=== PATIENT | male | born 1930 | race Caucasian/White ===

== ENCOUNTER 2016-11-27 10:08 | Inpatient (IN) | payer OTHER, BC ==
--- NOTE | 2016-11-27 10:15 | PDOC ---
History of Present Illness - General Chief Complaint: Rectal Bleed Stated Complaint: BLOOD IN STOOL Time Seen by Provider: 11/27/16 10:14 - History of Present Illness Initial Comments: 11/27/16 10:35 Complaint: Black stool History of present illness: For about a week, the patient has been experiencing black bowel movements. No constipation, diarrhea, or straining. No abdominal pain, nausea, or vomiting. Appetite is normal Review of systems: Denies chest pain, shortness of breath, abdominal pain, nausea, vomiting, diarrhea, visual or focal neurologic symptoms, unsteadiness of gait, lightheadedness, dizziness. Remainder systems reviewed and found to be negative Past medical history: CAD, pacemaker, but no prior [place]. Colon cancer with resection 7 years ago, disease-free since. High blood pressure. Elevated cholesterol. Takes one baby aspirin per day. However, no history of stomach, duodenal ulcer or GI bleeding Social history: No tobacco alcohol or nonprescription drug abuse. a stable home and family, fully active without disability Family history: Reviewed and noncontributory including early coronary artery disease, cancer, peptic ulcer disease, metabolic disease including diabetes. Physical exam: Alert and oriented 3, well-developed well-nourished, no acute distress, cheerful and cooperative Afebrile, vital signs stable No pallor or icterus. PERRLA, fundi benign, ENT clear Neck supple without bruit mass or nodes Lungs clear to P&A with full breath sounds throughout bilaterally CV S1 and S2 normal without murmur rub or gallop pulses full and symmetric no JVD movement 60 and regular Abdomen nondistended, normal bowel sounds, soft without masses tenderness organomegaly Rectal exam: Prostate 3+, firm, nontender, without nodules. Stool is black, soft , and blood-tinged. No mass or tenderness Neurological intact Extremities no CCE Skin clear, no rash, adequate turgor and wet mucous membranes Impression: Possible upper GI bleed secondary to aspirin therapy. Possible lower GI bleed, diverticular, or less likely recurrent colon cancer. There is no abdominal pain or tenderness, however. Plan: CBC, chemistries, and further medical evaluation depending on results. Patient appears to be stable at present, and doubt significant blood loss. 11/27/16 11:19 Past History - Past Medical History Allergies/Adverse Reactions: Allergies Allergy/AdvReac Type Severity Reaction Status Date / Time Penicillins Allergy Verified 11/27/16 10:16 Home Medications: Ambulatory Orders Metoprolol Succinate [Toprol XL -] 50 mg PO BID 10/09/13 Multivitamin [Multivitamins] 1 each PO DAILY 10/09/13 Ramipril 2.5 mg PO DAILY 10/09/13 Simvastatin [Zocor] 80 mg PO HS 10/09/13 Pantoprazole Sodium [Protonix -] 40 mg PO DAILY #30 tablet.ec 10/11/13 Aspirin [Aspirin EC] 81 mg PO DAILY 11/27/16 Anemia: Yes Cancer: Yes (COLON CA) Cardiac Disorders: Yes (CAD W/ PM) GI Disorders: Yes (DIVERTULOSIS) - Surgical History Abdominal Surgery: Yes (COLON RESECTION) - Psycho/Social/Smoking Cessation Hx Anxiety: No Suicidal Ideation: No Smoking History: Former smoker Have you smoked in the past 12 months: No Number of Cigarettes Smoked Daily: 0 ED Treatment Course - LABORATORY CBC & Chemistry Diagram: 11/27/16 10:45 11/27/16 10:45 Medical Decision Making - Critical Care Time Total Critical Care Time (minutes): 30 Critical Care Statement: The care of this patient involved high complexity decision making to prevent further life threatening deterioration of the patient 's condition and/or to evalute & treat vital organ system(s) failure or risk of failure. - Medical Decision Making 11/27/16 11:35 Patient is significantly orthostatic. H&H are stable, but BUNs 36, suggestive of continued bleeding Dr. Saez contacted for consultation. He will see patient in the ER Patient will be admitted because of probable ongoing GI bleed and significant coronary artery disease. His H&H are stable but is [place] is 36 and his blood pressure drops to 60/40, accompanied by lightheadedness, with standing. 11/27/16 12:35 Doctor Carter contacted by phone. Case discussed. He will accept the patient for ICU admission. 11/27/16 13:[address] Grififths, hospitalist. Case was discussed. He accepts patient for admission Patient remained stable at present. He is comfortable and his vital signs are stable while lying. There is been no continued diarrhea. He has no abdominal pain. . *DC/Admit/Observation/Transfer Diagnosis at time of Disposition: GI (gastrointestinal hemorrhage) Qualifiers: GI bleed type/associated pathology: melena Qualified Code(s): K92.1 - Melena - Discharge Dispostion Condition at time of disposition: Guarded Admit: Yes
[2016-11-27 10:57] LABS: STOOL FOR OCCULT BLOOD POSITIVE (NEGATIVE)
[2016-11-27 11:06] LABS: BASOPHIL 0.6 % (0-2.0); EOSINOPHIL 0.8 % (0-4.5); MCH 31.6 pg (25.7-33.7); MCHC 33.3 g/dl (32.0-35.9); MEAN PLT VOLUME 8.2 fl (7.5-11.1); NEUTROPHILS 78.2 % (42.8-82.8); PLATELET COUNT 210 K/MM3 (134-434); RDW 12.5 % (11.9-15.9)
[2016-11-27 11:10] LABS: URINE APPEARANCE Clear; URINE BILIRUBIN Negative (NEGATIVE); URINE GLUCOSE (UA) Negative (NEGATIVE); URINE KETONE Negative (NEGATIVE); URINE LEUK ESTERASE Trace (NEGATIVE); URINE NITRITE Negative (NEGATIVE); URINE UROBILINOGEN 1.0 E.U/dl (0.2-1.0)
[2016-11-27 11:11] LABS: URINE BLOOD 2+ (NEGATIVE); URINE COLOR YELLOW; URINE PROTEIN 1+ (NEGATIVE)
[2016-11-27 11:15] LABS: ALBUMIN 4.6 g/dl (3.5-5.0); BILIRUBIN,TOTAL 1.1 mg/dl (0.2-1.0); CALCIUM 9.3 mg/dl (8.4-10.2); CREATININE 1.5 mg/dl (0.6-1.3); TOT PROT 7.4 g/dl (6.4-8.3)
[2016-11-27] MEDS ORDERED: PANTOPRAZOLE SODIUM 40 MG in SODIUM CHLORIDE 100 ML IVPB ONE (11:26)
[2016-11-27] MEDS ORDERED: PANTOPRAZOLE SODIUM 40 MG VIAL ONE (11:30)
[2016-11-27 13:12] LABS: URINE RBC 30-50 /hpf (0-3)
[2016-11-27 13:13] LABS: URINE HYALINE CAST 0-2 /lpf
[2016-11-27 15:28] VITALS: BMI 23.3
--- NOTE | 2016-11-27 16:07 | CONSULT ---
Consultation: REQUESTING PROVIDER: CONSULT REQUEST: We have been asked to medically evaluate this patient for possible GIB HISTORY OF PRESENT ILLNESS: 85 yo M with PMHx of GIB, HTN, HLD, CAD, and colon ca. presents with one week history of black tarry stools. He states that for the past week he has had 1-2 black tarry stools/day which have gotten progressively darker of the past few days. He is on ASA for his CAD. He also mentions that he has noticed some increased fatigue and lightheadedness when he stands. BP was 66/47 this morning in ED at [place]. Transferred to ICU for hypotension and possible GI bleed. Had an episode of GI bleed 3 yrs prior admitted to required transfusion. EGD at that time showed gastritis and treated with Protonix. f/u EGD 2013 WNL. Last colonoscopy done 3 yrs ago unsure of result but remembers asked to return in 2 yrs. but has not. In regards to Colon Ca. s/p resection+ chemo 2009. Denies CP,DIAZ, SOB, palpitations, n/v. REVIEW OF SYSTEMS: CONSTITUTIONAL: (+)generalized weakness Absent: fever, chills, diaphoresis, , malaise, loss of appetite, weight change HEENT: Absent: rhinorrhea, nasal congestion, throat pain, throat swelling, difficulty swallowing, mouth swelling, ear pain, eye pain, visual changes CARDIOVASCULAR: Absent: chest pain, syncope, palpitations, irregular heart rate, lightheadedness , peripheral edema RESPIRATORY: Absent: cough, shortness of breath, dyspnea with exertion, orthopnea, wheezing, stridor, hemoptysis GASTROINTESTINAL: (+) melena Absent: abdominal pain, abdominal distension, nausea, vomiting, diarrhea, constipation, , hematochezia GENITOURINARY: Absent: dysuria, frequency, urgency, hesitancy, hematuria, flank pain, genital pain MUSCULOSKELETAL: Absent: myalgia, arthralgia, joint swelling, back pain, neck pain SKIN: Absent: rash, itching, pallor HEMATOLOGIC/IMMUNOLOGIC: Absent: easy bleeding, easy bruising, lymphadenopathy, frequent infections ENDOCRINE: Absent: unexplained weight gain, unexplained weight loss, heat intolerance, cold intolerance NEUROLOGIC: Absent: headache, focal weakness or paresthesias, dizziness, unsteady gait, seizure, mental status changes, bladder or bowel incontinence PSYCHIATRIC: Absent: anxiety, depression, suicidal or homicidal ideation, hallucinations. PHYSICAL EXAMINATION Vital Signs - 24 hr 11/27/16 15:29 Temperature 98.2 F Pulse Rate 62 Respiratory 16 Rate Blood Pressure 152/60 GENERAL: Awake, alert, and fully oriented, in no acute distress. HEAD: Normal with no signs of trauma. EYES: Pupils equal, round and reactive to light, extraocular movements intact, sclera anicteric, conjunctiva clear. No lid lag. EARS, NOSE, THROAT: Dry mucous membranes. NECK: Supple and No JVD. LUNGS: Breath sounds equal, clear to auscultation bilaterally. No wheezes, and no crackles. No accessory muscle use. HEART: Regular rate and rhythm, normal S1 and S2 ,2/6 syst. ejecton murmur, ABDOMEN: Soft, surgical scar midline from colon resection,. nontender, not distended, normoactive bowel sounds, no guarding, no rebound, no masses. No hepatomegaly or splenomegaly. RECTAL: No hemorrhoids, fissures, or fistulas, no masses, normal sphincter tone.No blood, no stool in rectal vault. MUSCULOSKELETAL: Normal range of motion at all joints. No bony deformities or tenderness. No CVA tenderness. UPPER EXTREMITIES: 2+ pulses, warm, well-perfused. No cyanosis. No clubbing. Cap refill <2 seconds. No peripheral edema. LOWER EXTREMITIES: 2+ pulses, warm, well-perfused. No calf tenderness. No peripheral edema. NEUROLOGICAL: AAO x3 . Normal speech. gait not observed. PSYCHIATRIC: Cooperative. Good eye contact. Appropriate mood and affect. SKIN: Warm, dry, normal turgor, no rashes or lesions noted. Active Medications Generic Name Dose Route Start Last Admin Trade Name Freq PRN Reason Stop Dose Admin Pantoprazole Sodium 80 mg/ 100 mls @ 10 mls/hr 11/27/16 16:00 Sodium Chloride IVPB Q10H JOSE E 8 MG/HR Metoprolol Succinate 50 mg 11/27/16 22:00 Toprol Xl - PO BID JOSE E Non-Formulary Medication 1 each 11/28/16 10:00 Multivitamin [Multivitamins] PO DAILY JOSE E Non-Formulary Medication 80 mg 11/27/16 22:00 Simvastatin [Zocor] PO HS JOSE E Ramipril 2.5 mg 11/28/16 10:00 Altace - PO DAILY JOSE E ASSESSMENT/PLAN: 85 yo M with PMHx GIB, HTN, HLD, CAD, and colon ca. admitted to ICU for GI bleed and hypotension. Neuro: * AAOx3 Pulm: * Supplemental O2 PRN * maintain O2 sat >90% CV: * Hypotensive earlier today- Now slightly hypertensive. BP 150's/60's * Seen by Dr. Samuel his production illustrator. * Held Ramipril at this time * Will continue Metoprolol XL 50mg BID and Lipitor 40mg HS * Cleared for EGD. GI: * NPO for now * ASA held * Protonix drip started. * Consulted Dr. Chi * EGD most likely tomorrow. * Prior EGD 2013 WNL * Colonscopy 3 yrs ago - results? * Will attempt to obtain old records. Renal: * LULU * gentle hydration * avoid nephrotoxins. * repeat labs in AM F/E/N * IVF NS @ 75ml/hr * BUN and Cr elevated will repeat CMP in AM * NPO for now. Dispo: We will continue to follow the patient. Thank you for this consultative opportunity. Visit type - Emergency Visit Emergency Visit: Yes ED Registration Date: 11/27/16 Care time: The patient presented to the Emergency Department on the above date and was hospitalized for further evaluation of their emergent condition. - New Patient This patient is new to me today: Yes Date on this admission: 11/27/16 - Critical Care Critical Care patient: Yes Total Critical Care Time (in minutes): 33 Critical Care Statement: The care of this patient involved high complexity decision making to prevent further life threatening deterioration of the patient 's condition and/or to evalute & treat vital organ system(s) failure or risk of failure.
--- NOTE | 2016-11-27 16:10 | CONSULT ---
Consult Consult Specialty:: Cardiology Referred by:: Dr Griffiths Reason for Consultation:: Pre-op for possible EGD - History of Present Illness History of Present Illness: 85 yo male, with the detailed history as below, transferred here from [facility] with almost a week of melena and intermittent dizziness. He denies CP, SOB, palpitations, or syncope H/H are 12/36. He is awaiting Gi evaluation. 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 Faustin at [facility] -> 100% pacer dependent. 04/10 pulse generator replacement [employer] model # [id number] DDDR.. Atrial fibrillation paroxysmal. first in his 50s, in the setting of stress -> was on coumadin for some time. Again, noted on pacemaker interrogation from 2007. Zane monitor showed sinus rhythm with ventricular pacing and no ectopy. Patient was then under the care oh he is prior relations liaison, Dr. Ford who made the ultimate decision not to anticoagulate him. Atrial fibrillation again noted on recent PPM interrogations -> pt not in favor of anticoagulation and given GIB in 10/10 and 2013, we decided not to pursue AC Coronary artery disease with history of angioplasty with JACKSON stent placement to the mLAD and OM1 in November of 2005, as well as ?RCA PCI in march 2006. Nuclear stress test in in August 2010 showed normal perfusion with ejection portion of 64%. Nuclear (10/01/12) -> Normal myocardial perfusion. EF 64% H/O echocardiogram, 01/09/12 mild aortic stenosis, normal LV function, mild left ventricular DD versus aging, concentric LVH, mild MR, mild TR, LAE Hiatal hernia Zenker's diverticulum Colon Cancer status post resection and chemotherapy UGIB (upper gastrointestinal bleed), 10/10 RUSSELL/fatigue/CP-> Hct 20 -> 2 U PRBC at [facility]. EGD by Dr Saez -> gastritis -> protonix. Plavix d/tabby. Again in 04/11 -> EGD -> no change PSH Colectomy Cataract extraction, bilateral Cardiac pacemaker placement implanted in 05/04 with pulse generator replacement [employer] model number # [id number], DDDR in 04/10 External ear surgery Right ear cancer resection, by Dr Agustin Donnelly at [place],on 08/12/15 - History Source History Provided By: Patient - Past Medical History Cardio/Vascular: Yes: AFIB (paroxysmal -. decision not to AC partly from pt's choice and partly becuase of GIBs), CAD (PCI/stent 2005), HTN, Hyperlipdemia, Other (CHB -. PPM in 2006 -. battery cahnge in 2012) Gastrointestinal: Yes: GERD, GI Bleed (in 2012 -. PRBC -> EGD showed gastritis nd 2013) - Past Surgical History Past Surgical History: Yes: Cataract Removal, Colectomy - Alcohol/Substance Use Hx Alcohol Use: Yes (social) - Smoking History Smoking history: Former smoker Have you smoked in the past 12 months: No Aproximately how many cigarettes per day: 0 If you are a former smoker, when did you quit?: 1979 - Social History Usual Living Arrangement: With Spouse Home Medications - Allergies Allergies/Adverse Reactions: Allergies Allergy/AdvReac Type Severity Reaction Status Date / Time Penicillins Allergy Verified 11/27/16 10:16 - Home Medications Home Medications: Ambulatory Orders Metoprolol Succinate [Toprol XL -] 50 mg PO BID 10/09/13 Multivitamin [Multivitamins] 1 each PO DAILY 10/09/13 Ramipril 2.5 mg PO DAILY 10/09/13 Simvastatin [Zocor] 80 mg PO HS 10/09/13 Pantoprazole Sodium [Protonix -] 40 mg PO DAILY #30 tablet.ec 10/11/13 Aspirin [Aspirin EC] 81 mg PO DAILY 11/27/16 Family Disease History - Family Disease History Family History: Denies (premature CAD) Review of Systems - Review of Systems Constitutional: reports: Weakness Eyes: reports: No Symptoms HENT: reports: No Symptoms Neck: reports: No Symptoms Cardiovascular: reports: No Symptoms Respiratory: reports: SOB on Exertion (baseline) Gastrointestinal: reports: Melena Musculoskeletal: reports: Joint Pain Neurological: reports: Dizziness Endocrine: reports: No Symptoms Psychiatric: reports: No Symptoms Physical Exam Vital Signs: Vital Signs Temperature 98.2 F 11/27/16 15:29 Pulse Rate 62 11/27/16 15:29 Respiratory Rate 16 11/27/16 15:29 Blood Pressure 152/60 11/27/16 15:29 O2 Sat by Pulse Oximetry (%) 98 11/27/16 14:55 Constitutional: Yes: No Distress Eyes: Yes: Conjunctiva Clear HENT: Yes: Atraumatic Neck: Yes: Supple Cardiovascular: Yes: Regular Rate and Rhythm, Murmur (WENDY at base) Respiratory: Yes: CTA Bilaterally Gastrointestinal: Yes: Normal Bowel Sounds, Soft. No: Tenderness Edema: No Peripheral Pulses WNL: Yes Neurological: Yes: Alert, Oriented Psychiatric: Yes: Alert, Oriented Imaging - Results Other: Other (Echocardiography Report 12/16/14 Acoustic windows are overall adequate. Normal left ventricular size and systolic function, LVEF 53%. Moderate concentric left ventricular hypertrophy. Mild to moderate mitral valve regurgitation. Mild left atrial dilatation. Mild aortic valve stenosis. Mild mitral annular calcification. Mild to moderate mitral valve regurgitation. Mild tricuspid valve regurgitation. Mild pulmonic valve regurgitation. Compared to 01/09/12 study report, mild to mod MR is now noted. Lexiscan nuclear (04/20/15) No symptoms Non-diagnostic EKG given pacing Small , mild apico-lateral ischemia. Small, mild partial [id number] ischemia. Normal LV size with EF 55% and normal wall motion.) Assessment/Plan 85 yo male with the above history, here with apparent UGB -. with pretty good first H/H He is HD stable He has no cardiac complaints Rec: Hold ASA for now Continue other cardiac meds Patient may proceed wit any GI evaluation, as deemed necessary Thanks! We'll follow! D/w at bedside D/w housestaff
[2016-11-27] MEDS: PANTOPRAZOLE SODIUM 80 MG in SODIUM CHLORIDE 100 ML IVPB SCH (17:06)
--- NOTE | 2016-11-27 18:01 | PN ---
Progress Note (short form) - Note Progress Note: GASTROENTEROLOGY SAW DR RUTH (PATIENT'S AUTOMOBILE DESIGNER)IN THE ER AT [place] PATIENT SENT TO ICU AT [facility] PLEASE CALL DR RUTH FOR CONSULT THANH PIMENTEL MD
--- NOTE | 2016-11-27 18:05 | HP ---
CHIEF COMPLAINT: dark stool PCP: Dr. Valle Cardiology: Dr. Samuel HISTORY OF PRESENT ILLNESS: 85 yr old man with hx of colon ca s/p resection in 2009, HTN, CAD, s/p pacemaker , hx of GI bleed, presents with dark black stools since Sunday. Each stool has been formed, and progressively darker since Sunday. Notes increased fatigue recently. He went away for the weekend, to the [facility], then came to [facility] ER to be evaluated today. He takes 81mg ASA daily, no recent increase in dose. No new medications, no new foods. Denies bright red blood per rectum, vomiting, abdominal pain, heartburn, chest pain, hematuria. He does not take iron tablets at home. ER course was notable for: (1) episode of orthostatic hypotension when standing, BP 60/40 (2) stool guiac postive Recent Travel: [facility], no international travel PAST MEDICAL HISTORY/SURGICAL HISTORY: Colon Ca, s/p resection 2009 s/p treatment with chemo Hx f GI bleed - 2013, hgb 7.7, EGD with gastritis in 2012, EGD 2013 f/u WNL. Last colonoscopy done 3 yrs ago unsure of result but remembers asked to return in 2 yrs, but he didn't return. 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 Social History: Smoking: quit 40 yr ago, used to smoke 1pk/day with 1 pipe/day for 10 yrs Alcohol: rare Drugs: denies Family History: Father with intestinal ca, dx 55, 63 Mother with HTN, Allergies Penicillins Allergy (Verified 11/27/16 10:16), anaphalyctic HOME MEDICATIONS: Medication Instructions Recorded Metoprolol Succinate [Toprol XL -] 50 mg PO BID 10/09/13 Multivitamin [Multivitamins] 1 each PO DAILY 10/09/13 Ramipril 2.5 mg PO DAILY 10/09/13 Simvastatin [Zocor] 80 mg PO HS 10/09/13 Pantoprazole Sodium [Protonix -] 40 mg PO DAILY #30 tablet.ec 10/11/13 Aspirin [Aspirin EC] 81 mg PO DAILY 11/27/16 REVIEW OF SYSTEMS CONSTITUTIONAL: Absent: fever, chills, diaphoresis, generalized weakness, malaise, loss of appetite, weight change HEENT: Absent: rhinorrhea, nasal congestion, throat pain, throat swelling, difficulty swallowing, mouth swelling, ear pain, eye pain, visual changes CARDIOVASCULAR: Present: lightheadedness Absent: chest pain, syncope, palpitations, irregular heart rate, peripheral edema RESPIRATORY: Present:orthopnea, Absent: cough, shortness of breath, dyspnea with exertion, wheezing, stridor, hemoptysis GASTROINTESTINAL: Present: melena, Absent: abdominal pain, abdominal distension, nausea, vomiting, diarrhea, constipation,hematochezia GENITOURINARY: Absent: dysuria, frequency, urgency, hesitancy, hematuria, flank pain, genital pain MUSCULOSKELETAL: Absent: myalgia, arthralgia, joint swelling, back pain, neck pain SKIN: Absent: rash, itching, pallor HEMATOLOGIC/IMMUNOLOGIC: Absent: easy bleeding, easy bruising, lymphadenopathy, frequent infections ENDOCRINE: Absent: unexplained weight gain, unexplained weight loss, heat intolerance, cold intolerance NEUROLOGIC: Absent: headache, focal weakness or paresthesias, dizziness, unsteady gait, seizure, mental status changes, bladder or bowel incontinence PSYCHIATRIC: Absent: anxiety, depression, suicidal or homicidal ideation, hallucinations. PHYSICAL EXAMINATION Vital Signs - 24 hr 11/27/16 11/27/16 11/27/16 15:29 16:46 16:58 Temperature 98.2 F Pulse Rate 62 62 62 Respiratory 16 16 16 Rate Blood Pressure 152/60 146/72 146/72 GENERAL: Awake, alert, and fully oriented, in no acute distress. HEAD: Normal with no signs of trauma. EYES: Pupils equal, round and reactive to light, extraocular movements intact, sclera anicteric, conjunctiva pale. No lid lag. EARS, NOSE, THROAT: Ears normal, nares patent, oropharynx clear without exudates. Moist mucous membranes. NECK: Normal range of motion, supple without lymphadenopathy, JVD, or masses. well healed scar. LUNGS: Breath sounds equal, clear to auscultation bilaterally. No wheezes, and no crackles. No accessory muscle use. HEART: Regular rate and rhythm, normal S1 and S2 with systolic ej murmur, rub or gallop. ABDOMEN: Soft, nontender, not distended, normoactive bowel sounds, no guarding, no rebound, no masses. well healed midline scar in lower abdomen, mild ttp in right lower quadrant with deep palpation. MUSCULOSKELETAL: Normal range of motion at all joints. No bony deformities or tenderness. No CVA tenderness. UPPER EXTREMITIES: 2+ pulses, warm, well-perfused. No cyanosis. No clubbing. No peripheral edema. LOWER EXTREMITIES: 2+ pulses, warm, well-perfused. No calf tenderness. No peripheral edema. NEUROLOGICAL: Cranial nerves II-XII intact. Normal speech. PSYCHIATRIC: Cooperative. Good eye contact. Appropriate mood and affect. SKIN: Warm, dry, normal turgor, no rashes or lesions noted. RECTAL: normal hair distribution, normal sphincter tone, no external hemorrhoids , no fissures, no stool in vault, non-nodular prostate wnl size. CBCD WBC 6.4 K/mm3 (4.0-10.0) 11/27/16 18:20 RBC 2.98 M/mm3 (4.00-5.60) L 11/27/16 18:20 Hgb 9.6 GM/dL (11.7-16.9) L 11/27/16 18:20 Hct 28.4 % (35.4-49) L 11/27/16 18:20 MCV 95.4 fl (80-96) 11/27/16 18:20 MCHC 33.8 g/dl (32.0-35.9) 11/27/16 18:20 RDW 13.0 % (11.9-15.9) 11/27/16 18:20 Plt Count 151 K/MM3 (134-434) 11/27/16 18:20 MPV 8.6 fl (7.5-11.1) 11/27/16 18:20 CMP Sodium 136 mmol/L (136-145) 11/27/16 10:45 Potassium 5.0 mmol/L (3.5-5.1) 11/27/16 10:45 Chloride 101 mmol/L (98-107) 11/27/16 10:45 Carbon Dioxide 24 mmol/L (22-28) 11/27/16 10:45 Anion Gap 11 (8-16) 11/27/16 10:45 BUN 36 mg/dl (7-18) H D 11/27/16 10:45 Creatinine 1.5 mg/dl (0.6-1.3) H D 11/27/16 10:45 Creat Clearance w eGFR 44.59 (>60) 11/27/16 10:45 Calcium 9.3 mg/dl (8.4-10.2) 11/27/16 10:45 Total Bilirubin 1.1 mg/dl (0.2-1.0) H D 11/27/16 10:45 AST 35 U/L (10-42) D 11/27/16 10:45 ALT 21 U/L (10-40) D 11/27/16 10:45 Alkaline Phosphatase 47 U/L (32-92) D 11/27/16 10:45 Total Protein 7.4 g/dl (6.4-8.3) 11/27/16 10:45 Albumin 4.6 g/dl (3.5-5.0) 11/27/16 10:45 Current Medications Generic Name Dose Route Start Last Admin Trade Name Freq PRN Reason Stop Dose Admin Atorvastatin Calcium 40 mg 11/27/16 22:00 Lipitor - PO HS JOSE E Chlorhexidine Gluconate 1 applic 11/27/16 22:00 Hibiclens For Decolonization - TP HS JOSE E Pantoprazole Sodium 80 mg/ 100 mls @ 10 mls/hr 11/27/16 16:00 11/27/16 17:06 Sodium Chloride IVPB 10 mls/hr Q10H JOSE E Administration 8 MG/HR Sodium Chloride 1,000 mls @ 75 mls/hr 11/27/16 18:45 Normal Saline - IV ASDIR JOSE E Metoprolol Succinate 50 mg 11/27/16 22:00 Toprol Xl - PO BID JOSE E Multivitamins/Minerals/Vitamin C 1 tab 11/28/16 10:00 Tab-A-Vit - PO DAILY JOSE E Mupirocin 1 applic 11/27/16 22:00 Bactroban Ointment (For Decolonization) - NS 12/02/16 21:59 BID JOSE E ASSESSMENT/PLAN: 85 yo man with hx of GI bleed, HTN, CAD, with pacemaker, hx of colon cancer, admitted to ICU for GI bleed and hypotension. #GI bleed - likely upper given melena(stool guiac positive) - h/h q6h, currently 9.8/28.4, transfuse if <8.0 - protonix drip 8mg/hr - NPO, hold ASA - pending GI evaluation #Hypotension, improved. - IVF @75ml/hr - hold ramipril and toprol for tonight - Dr. Samuel, cardio consulted - repeat orthostatics in the AM #LULU, elevated Cr 1.5 (baseline 1.2) - likely prerenal due to GI bleed - IVF NS 75ml/hr - repeat BMP in the AM #diet - npo #SCD for DVT given bleed Visit type - Emergency Visit Emergency Visit: No - New Patient This patient is new to me today: Yes Date on this admission: 11/27/16 - Critical Care Critical Care patient: No
--- NOTE | 2016-11-27 18:22 | PN ---
Teaching Attending Note Name of Resident: Bertrand Vega ATTENDING PHYSICIAN STATEMENT I saw and evaluated the patient. I reviewed the resident's note and discussed the case with the resident. I agree with the resident's findings and plan as documented. SUBJECTIVE: This is an 85-year-old man with a history of CAD, stents, HTN, PAF, hyperlipidemia, 3rd degree AVB, pacemaker, colon cancer, colon resection, Zenker 's diverticulum who presented to the [place] ER this morning because of dark black tarry stools for the last 5 days. He denies abdominal pain, heartburn , nausea, vomiting, weight loss, loss of appetite, rectal bleeding, NSAID use, alcohol use, chest pain, SOB. He takes aspirin 81 mg daily. In the ER, when he stood, his BP dropped to 66/47 and he became lightheaded. OBJECTIVE: Vital Signs Period Temp Pulse Resp BP Sys/Pulido Pulse Ox Last 24 Hr 97.6 F-98.5 F 60-76 15-17 66-155/47-85 96-99 HEART: S1 S2, RRR, (+) 2/6 systolic murmur LUNGS: Clear ABDOMEN: Soft, non-tender, non-distended, normal BS EXTREMITIES: No edema ASSESSMENT AND PLAN: This is an 85-year-old man with a history of CAD, stents, PAF, HTN, hyperlipidemia, 3rd degree AVB, pacemaker, colon cancer, colon resection, Zenker 's diverticulum who comes to the ER today complaining of black stool for 5 days. He was found to be orthostatic. Hemoglobin was 12.1, BUN 36, creatinine 1.5. 1. Upper GI bleed - Protonix IV drip started - NPO - IV fluid - Hold aspirin - Follow hemoglobin - GI consult for endoscopy 2. Orthostatic hypotension secondary to GI bleeding - IV fluid - Hold antihypertensives 3. CAD, history of stents - Hold aspirin 4. Paroxysmal atrial fibrillation - Not on anticoagulation secondary to prior GI bleeds 5. Pacemaker for history of 3rd degree AV block 6. Hypertension - Hold Toprol XL, Altace secondary to orthostatic hypotension 7. Hyperlipidemia 8. History of colon cancer, colon resection
[2016-11-27 18:39] LABS: BASOPHIL 0.6 % (0-2.0); EOSINOPHIL 0.6 % (0-4.5); MCH 32.3 pg (25.7-33.7); MCHC 33.8 g/dl (32.0-35.9); MEAN CELL VOLUME 95.4 fl (80-96); MEAN PLT VOLUME 8.6 fl (7.5-11.1); NEUTROPHILS 58.9 % (42.8-82.8); PLATELET COUNT 151 K/MM3 (134-434); WHITE BLOOD COUNT 6.4 K/mm3 (4.0-10.0)
[2016-11-27] MEDS ORDERED: SODIUM CHLORIDE 1,000 ML IV SCH (18:45)
--- NOTE | 2016-11-27 18:46 | CON.GI ---
Consult Consult Specialty:: gastroenterology Referred by:: hospitalist - History of Present Illness History of Present Illness: 85 y/o male was asked to be seen because of melena for 1 weeks. He went to [facility] because of dizziness and where he was noted to have low blood pressure. IV hydration was done, the blood pressure improved. - Past Medical History Cardio/Vascular: Yes: AFIB (paroxysmal -. decision not to AC partly from pt's choice and partly becuase of GIBs), CAD (PCI/stent 2005), HTN, Hyperlipdemia, Other (CHB -. PPM in 2006 -. battery cahnge in 2012) Gastrointestinal: Yes: GERD, GI Bleed (in 2012 -. PRBC -> EGD showed gastritis nd 2013) - Past Surgical History Past Surgical History: Yes: Cataract Removal, Colectomy - Alcohol/Substance Use Hx Alcohol Use: Yes (social) - Smoking History Smoking history: Former smoker Have you smoked in the past 12 months: No Aproximately how many cigarettes per day: 0 If you are a former smoker, when did you quit?: 1979 - Social History Usual Living Arrangement: With Spouse Home Medications - Allergies Allergies/Adverse Reactions: Allergies Allergy/AdvReac Type Severity Reaction Status Date / Time Penicillins Allergy Verified 11/27/16 10:16 - Home Medications Home Medications: Ambulatory Orders Metoprolol Succinate [Toprol XL -] 50 mg PO BID 10/09/13 Multivitamin [Multivitamins] 1 each PO DAILY 10/09/13 Ramipril 2.5 mg PO DAILY 10/09/13 Simvastatin [Zocor] 80 mg PO HS 10/09/13 Pantoprazole Sodium [Protonix -] 40 mg PO DAILY #30 tablet.ec 10/11/13 Aspirin [Aspirin EC] 81 mg PO DAILY 11/27/16 Review of Systems - Review of Systems Constitutional: denies: Fever Eyes: denies: Blurred Vision HENT: denies: Difficult Swallowing Neck: denies: Decreased ROM Cardiovascular: denies: Chest Pain Respiratory: denies: Cough Gastrointestinal: denies: Abdominal Pain Genitourinary: denies: Discharge Physical Exam-GI Vital Signs: Vital Signs Temperature 98.2 F 11/27/16 15:29 Pulse Rate 62 11/27/16 16:58 Respiratory Rate 16 11/27/16 16:58 Blood Pressure 146/72 11/27/16 16:58 O2 Sat by Pulse Oximetry (%) 98 11/27/16 14:55 Constitutional: Yes: Well Nourished Eyes: Yes: Conjunctiva Clear HENT: Yes: Atraumatic Neck: Yes: Supple Cardiovascular: Yes: Regular Rate and Rhythm Respiratory: Yes: CTA Bilaterally ...Palpate: Yes: Soft. No: Firm/Rigid, Guarding, Hepatomegaly, Mass, Pulsatile Mass, Splenomegaly, Tenderness Assessment/Plan melena,Upper GI bleeding R> Protonix drip EGD in am will Cardiology clearance
--- NOTE | 2016-11-27 20:31 | CONSULT ---
Consult Consult Specialty:: Pulm/CC - History of Present Illness History of Present Illness: Pt is an 85yr old man with PMHx of HTN, HLD, CAD s/p cardiac stent in 2005 and PPM in 2006, colon cancer s/p resection and chemo (last 2009) and paroxysmal a- fib not in a/c in setting of hx of GIB. Pt presents to the [place] ER with CC of melana x ~1 week (pt states he is not sure). Pt with hgb 12.1 --> 9.6 and bp of 66/47 and was transferred to the ICU at [facility] for further management. Upon assessment, pt denies chest pain/headache/dizziness/n/v/diarrhea or constipation. - History Source History Provided By: Patient, Medical Record - Past Medical History Cardio/Vascular: Yes: AFIB (paroxysmal -. decision not to AC partly from pt's choice and partly becuase of GIBs), CAD (PCI/stent 2005), HTN, Hyperlipdemia, Other (CHB -. PPM in 2006 -. battery cahnge in 2012) Gastrointestinal: Yes: GERD, GI Bleed (in 2012 -. PRBC -> EGD showed gastritis nd 2013) - Past Surgical History Past Surgical History: Yes: Cataract Removal, Colectomy - Alcohol/Substance Use Hx Alcohol Use: Yes (social) - Smoking History Smoking history: Former smoker Have you smoked in the past 12 months: No Aproximately how many cigarettes per day: 0 If you are a former smoker, when did you quit?: 1979 - Social History Usual Living Arrangement: With Spouse Home Medications - Allergies Allergies/Adverse Reactions: Allergies Allergy/AdvReac Type Severity Reaction Status Date / Time Penicillins Allergy Verified 11/27/16 10:16 - Home Medications Home Medications: Ambulatory Orders Metoprolol Succinate [Toprol XL -] 50 mg PO BID 10/09/13 Multivitamin [Multivitamins] 1 each PO DAILY 10/09/13 Ramipril 2.5 mg PO DAILY 10/09/13 Simvastatin [Zocor] 80 mg PO HS 10/09/13 Pantoprazole Sodium [Protonix -] 40 mg PO DAILY #30 tablet.ec 10/11/13 Aspirin [Aspirin EC] 81 mg PO DAILY 11/27/16 Review of Systems - Review of Systems Cardiovascular: denies: Chest Pain, Shortness of Breath Respiratory: denies: SOB Gastrointestinal: reports: Melena. denies: Abdominal Pain, Constipation, Diarrhea, Vomiting Genitourinary: denies: Dysuria Neurological: denies: Dizziness, Headache Physical Exam Vital Signs: Vital Signs Period Temp Pulse Resp BP Sys/Pulido Pulse Ox Last 24 Hr 97.6 F-98.5 F 60-76 15-17 66-155/47-85 96-99 Intake & Output 11/24/16 11/25/16 11/26/16 11/27/16 23:59 23:59 23:59 23:59 Intake Total 300 Output Total 100 Balance 200 Weight 149 lb Constitutional: Yes: Well Nourished, No Distress, Calm Eyes: Yes: WNL, PERRL, Other (glasses) HENT: Yes: WNL Neck: Yes: WNL Cardiovascular: Yes: Other (paced rhythm) Respiratory: Yes: CTA Bilaterally. No: Rhonchi, SOB, Tachypnea, Wheezes Gastrointestinal: Yes: Normal Bowel Sounds, Soft, Distention (suprapubic), Tenderness (suprapubic) ...Rectal Exam: Yes: Guaiac Positive Renal/: Yes: Other (using urinal) Musculoskeletal: Yes: WNL Extremities: Yes: WNL Edema: No Peripheral Pulses WNL: (+1 bilateral pedal pulses) Integumentary: Yes: Other (slightly dry throughout) Neurological: Yes: WNL, Alert, Oriented Psychiatric: Yes: WNL Labs: Abnormal Lab Results 11/27/16 11/27/16 11/27/16 10:30 10:45 10:45 RBC 3.81 L D Hgb Hct BUN 36 H D Creatinine 1.5 H D Random Glucose 109 H Total Bilirubin 1.1 H D Urine Protein 1+ H Urine Blood 2+ H 11/27/16 18:20 RBC 2.98 L Hgb 9.6 L Hct 28.4 L BUN Creatinine Random Glucose Total Bilirubin Urine Protein Urine Blood Imaging - Results Chest X-ray: Report Reviewed, Image Reviewed Assessment/Plan Pt is an 85yr old man with PMHx of HTN, HLD, CAD s/p cardiac stent in 2005 and PPM in 2006, colon cancer s/p resection and chemo (last 2009) and paroxysmal a- fib not in a/c in setting of hx of GIB. Now in the ICU for management of GIB. Pulm: -O2 support prn for sat >94% -Incentive spirometer ID: -f/u influenza swab -Monitor off antibiotics for now GI: -Dr. Chi following -PPI -NPO for EGD in a.m Cardiovascular -Monitor h/h, transfuse prn -Hold home antihypertensives for now -Continue home statin Renal: -IVF as tolerated -Replete electrolytes prn -f/u bladder scan, concern for retention Neuro -Pain management prn Prophylactic -DVT
[2016-11-27] MEDS ORDERED: CHLORHEXIDINE GLUCONATE 4% CLEANSER FOR DECOLONIZATION TP SCH (22:00)
[2016-11-27] MEDS ORDERED: ATORVASTATIN CA 40 MG TABLET (FP) PO SCH (22:00)
[2016-11-27] MEDS ORDERED: PATIENT'S OWN MEDICATION (NON-FORMULARY) (Simvastatin [Zocor] 80 MG) PO SCH (22:00)
[2016-11-27] MEDS ORDERED: MUPIROCIN 2% TOPICAL OINTMENT FOR DECOLONIZATION NS SCH (22:00)
[2016-11-27] MEDS ORDERED: METOPROLOL SUCCINATE 50 MG TAB.SR.24H (FP) PO SCH (22:00)
[2016-11-27 22:28] LABS: BASOPHIL 0.5 % (0-2.0); EOSINOPHIL 1.1 % (0-4.5); MCH 32.4 pg (25.7-33.7); MCHC 33.9 g/dl (32.0-35.9); MEAN CELL VOLUME 95.6 fl (80-96); MEAN PLT VOLUME 8.6 fl (7.5-11.1); PLATELET COUNT 144 K/MM3 (134-434)
[2016-11-27 22:43] LABS: ACTIVATED PTT 28.2 SECONDS (26.9-34.4)
[2016-11-27 22:58] LABS: CALCIUM 8.2 mg/dL (8.5-10.1); CREATININE 1.2 mg/dL (0.7-1.3); MAGNESIUM 2.3 mg/dL (1.8-2.4); PHOSPHOROUS 3.2 mg/dL (2.5-4.9)
[2016-11-27 23:04] LABS: INR 1.14 (0.82-1.09); PROTHROMBIN TIME (PATIENT) 12.6 SEC (9.98-11.88)
[2016-11-27] MEDS ORDERED: CALCIUM GLUCONATE 10% - 1,000 MG/10 ML VIAL IVPB ONE (23:06)
[2016-11-28] MEDS: PANTOPRAZOLE SODIUM 80 MG in SODIUM CHLORIDE 100 ML IVPB SCH ×2 (01:36→21:12)
[2016-11-28 06:11] LABS: BASOPHIL 0.5 % (0-2.0); EOSINOPHIL 1.7 % (0-4.5); MCHC 34.7 g/dl (32.0-35.9); MEAN CELL VOLUME 95.1 fl (80-96); MEAN PLT VOLUME 8.8 fl (7.5-11.1); NEUTROPHILS 65.8 % (42.8-82.8); PLATELET COUNT 157 K/MM3 (134-434); RDW 12.9 % (11.9-15.9); WHITE BLOOD COUNT 6.9 K/mm3 (4.0-10.0)
[2016-11-28 06:35] LABS: TROPONIN I 0.05 ng/ml (0.00-0.05)
[2016-11-28 06:37] LABS: ALBUMIN 3.5 g/dl (3.4-5.0); ANION GAP 8 (8-16); CALCIUM 8.8 mg/dL (8.5-10.1); CO2 27 mmol/L (21-32); GLUCOSE,RANDOM 91 mg/dL (74-106); MAGNESIUM 2.3 mg/dL (1.8-2.4)
[2016-11-28 06:40] LABS: ALK PHOS 40 U/L (45-117); BILIRUBIN,TOTAL 0.8 mg/dL (0.2-1.0); CREATININE 1.1 mg/dL (0.7-1.3); PHOSPHOROUS 3.3 mg/dL (2.5-4.9); SGOT/AST 19 U/L (15-37); SGPT/ALT 20 U/L (12-78)
[2016-11-28] MEDS ORDERED: PROPOFOL 20 ML ONE (08:40)
[2016-11-28] MEDS ORDERED: LIDOCAINE HCL/PF 1% SDV 5ML VIAL ONE (08:40)
--- NOTE | 2016-11-28 08:58 | PN ---
Physical Exam: SUBJECTIVE: Patient seen and examined seen post-EGD. no complaints. denies chest pain, abdominal pain, SOB, lightheadedness. OBJECTIVE: Vital Signs Period Temp Pulse Resp BP Sys/Pulido Pulse Ox Last 24 Hr 98 F-98.5 F 62-65 16-18 127-155/60-78 98 GENERAL: The patient is awake, alert, and fully oriented, in no acute distress. LUNGS: Breath sounds equal, clear to auscultation bilaterally, no wheezes, no crackles, no accessory muscle use. HEART: irregular rate and rhythm, S1, S2 with diastolic murmur ABDOMEN: Soft, nontender, nondistended, normoactive bowel sounds, no guarding, no rebound, EXTREMITIES: 2+ pulses, warm, well-perfused, no edema. PSYCH: Normal mood, normal affect. Laboratory Results - last 24 hr 11/27/16 11/27/16 11/27/16 18:20 18:20 22:20 WBC 6.4 6.0 RBC 2.98 L 2.99 L Hgb 9.6 L 9.7 L Hct 28.4 L 28.5 L MCV 95.4 95.6 MCHC 33.8 33.9 RDW 13.0 13.0 Plt Count 151 144 MPV 8.6 8.6 Neutrophils % 58.9 59.0 Lymphocytes % 30.5 30.1 Monocytes % 9.4 9.3 Eosinophils % 0.6 1.1 D Basophils % 0.6 0.5 INR PTT (Actin FS) Sodium Potassium Chloride Carbon Dioxide Anion Gap BUN Creatinine Creat Clearance w eGFR Random Glucose Lactic Acid 1.044 Calcium Phosphorus Magnesium Total Bilirubin AST ALT Alkaline Phosphatase Creatine Kinase Creatine Kinase Index CK-MB (CK-2) CK-MB (CK-2) Rel Index Troponin I Total Protein Albumin 11/27/16 11/27/16 11/28/16 22:20 22:20 05:10 WBC RBC Hgb Hct MCV MCHC RDW Plt Count MPV Neutrophils % Lymphocytes % Monocytes % Eosinophils % Basophils % INR 1.14 PTT (Actin FS) 28.2 Sodium 141 140 Potassium 4.2 4.6 Chloride 106 105 Carbon Dioxide 26 27 Anion Gap 9 8 BUN 32 H D 30 H Creatinine 1.2 1.1 Creat Clearance w eGFR > 60 Random Glucose 84 91 Lactic Acid Calcium 8.2 L 8.8 Phosphorus 3.2 3.3 Magnesium 2.3 2.3 Total Bilirubin 0.8 AST 19 ALT 20 Alkaline Phosphatase 40 L Creatine Kinase Creatine Kinase Index CK-MB (CK-2) CK-MB (CK-2) Rel Index Troponin I Total Protein 6.0 L Albumin 3.5 11/28/16 11/28/16 11/28/16 05:10 05:10 06:00 WBC 6.9 RBC 3.07 L Hgb 10.1 L Hct 29.2 L MCV 95.1 MCHC 34.7 RDW 12.9 Plt Count 157 MPV 8.8 Neutrophils % 65.8 Lymphocytes % 23.4 D Monocytes % 8.6 Eosinophils % 1.7 Basophils % 0.5 INR PTT (Actin FS) Sodium Potassium Chloride Carbon Dioxide Anion Gap BUN Creatinine Creat Clearance w eGFR Random Glucose Lactic Acid Calcium Phosphorus Magnesium Total Bilirubin AST ALT Alkaline Phosphatase Creatine Kinase 212 Creatine Kinase Index 2.2 CK-MB (CK-2) 4.612 H CK-MB (CK-2) Rel Index Cancelled Troponin I 0.05 Total Protein Albumin Active Medications Generic Name Dose Route Start Last Admin Trade Name Freq PRN Reason Stop Dose Admin Atorvastatin Calcium 40 mg 11/27/16 22:00 11/27/16 21:48 Lipitor - PO 40 mg HS JOSE E Administration Chlorhexidine Gluconate 1 applic 11/27/16 22:00 11/27/16 21:49 Hibiclens For Decolonization - TP 1 applic HS JOSE E Administration Pantoprazole Sodium 80 mg/ 100 mls @ 10 mls/hr 11/27/16 16:00 11/28/16 01:36 Sodium Chloride IVPB 10 mls/hr Q10H JOSE E Administration 8 MG/HR Sodium Chloride 1,000 mls @ 75 mls/hr 11/27/16 18:45 11/27/16 19:01 Normal Saline - IV 75 mls/hr ASDIR JOSE E Administration Metoprolol Succinate 50 mg 11/27/16 22:00 11/27/16 21:48 Toprol Xl - PO 50 mg BID JOSE E Administration Multivitamins/Minerals/Vitamin C 1 tab 11/28/16 10:00 Tab-A-Vit - PO DAILY JOSE E Mupirocin 1 applic 11/27/16 22:00 11/27/16 21:48 Bactroban Ointment (For Decolonization) - NS 12/02/16 21:59 1 applic BID JOSE E Administration ASSESSMENT/PLAN: 85 yo man with hx of GI bleed, HTN, CAD, with pacemaker, hx of colon cancer, admitted to ICU for GI bleed and hypotension. #GI bleed -s/p EGD this morning, for colonoscopy tomorrow - currently stable, transfuse if <8.0 - clear liquid diet - NPO, hold ASA - clear liquid diet and bowel prep for tomorrow. #Hypotension, improved. - IVF @75ml/hr - hold ramipril and toprol for tonight given npo and for colonoscopy tomorrow. - Dr. Samuel, cardio consulted #LULU, elevated Cr 1.5 (baseline 1.2) - likely prerenal due to GI bleed - IVF NS 75ml/hr #diet - npo #SCD for DVT given bleed Visit type - Emergency Visit Emergency Visit: No - New Patient This patient is new to me today: No - Critical Care Critical Care patient: No - Discharge Referral Referred to [facility] No
[2016-11-28] MEDS ORDERED: SODIUM CHLORIDE 1,000 ML IV SCH (09:12)
[2016-11-28] MEDS ORDERED: MULTIVITAMIN PO SCH (10:00)
[2016-11-28] MEDS ORDERED: RAMIPRIL 2.5 MG CAPSULE (FP) PO SCH (10:00)
[2016-11-28] MEDS ORDERED: MULTIVITAMINS (DAILY MVI) TABLET (FP) PO SCH ×2 (10:00)
[2016-11-28] MEDS ORDERED: METOPROLOL SUCCINATE 50 MG TAB.SR.24H (FP) PO SCH (10:00)
[2016-11-28] MEDS ORDERED: MUPIROCIN 2% TOPICAL OINTMENT FOR DECOLONIZATION NS SCH ×3 (10:00→22:00)
[2016-11-28] MEDS ORDERED: PT OWN MED DRAWER 7, Y5N ONE (10:42)
--- NOTE | 2016-11-28 11:46 | PN ---
Physical Exam: SUBJECTIVE: Patient seen and examined at bedside. No overnight events. No new complaints. S/P EGD today. tolerated procedure well. Denies CP,DIAZ, SOB, palpitations, abd. pain, N/V. OBJECTIVE: Vital Signs Period Temp Pulse Resp BP Sys/Pulido Pulse Ox Last 24 Hr 98 F-98.5 F 61-65 16-18 123-155/56-78 98 GENERAL: The patient is awake, alert, and fully oriented, in no acute distress. HEAD: Normal with no signs of trauma. EYES: PERRL, extraocular movements intact, sclera anicteric, conjunctiva clear. No ptosis. ENT: Ears normal, nares patent, oropharynx clear without exudates, moist mucous membranes. NECK: supple , no jvd LUNGS: Breath sounds equal, clear to auscultation bilaterally, no wheezes, no crackles, no accessory muscle use. HEART: Regular rate and rhythm, S1, S2 without murmur, rub or gallop. ABDOMEN: Soft, nontender, nondistended, normoactive bowel sounds, no guarding, no rebound, no hepatosplenomegaly, no masses. EXTREMITIES: 2+ pulses, warm, well-perfused, no edema. NEUROLOGICAL: AAO x 3 Normal speech, gait not observed. PSYCH: Normal mood, normal affect. SKIN: Warm, dry, normal turgor, no rashes or lesions noted Laboratory Results - last 24 hr 11/27/16 11/27/16 11/27/16 18:20 18:20 22:20 WBC 6.4 6.0 RBC 2.98 L 2.99 L Hgb 9.6 L 9.7 L Hct 28.4 L 28.5 L MCV 95.4 95.6 MCHC 33.8 33.9 RDW 13.0 13.0 Plt Count 151 144 MPV 8.6 8.6 Neutrophils % 58.9 59.0 Lymphocytes % 30.5 30.1 Monocytes % 9.4 9.3 Eosinophils % 0.6 1.1 D Basophils % 0.6 0.5 INR PTT (Actin FS) Sodium Potassium Chloride Carbon Dioxide Anion Gap BUN Creatinine Creat Clearance w eGFR Random Glucose Lactic Acid 1.044 Calcium Phosphorus Magnesium Total Bilirubin AST ALT Alkaline Phosphatase Creatine Kinase Creatine Kinase Index CK-MB (CK-2) CK-MB (CK-2) Rel Index Troponin I Total Protein Albumin 11/27/16 11/27/16 11/28/16 22:20 22:20 05:10 WBC RBC Hgb Hct MCV MCHC RDW Plt Count MPV Neutrophils % Lymphocytes % Monocytes % Eosinophils % Basophils % INR 1.14 PTT (Actin FS) 28.2 Sodium 141 140 Potassium 4.2 4.6 Chloride 106 105 Carbon Dioxide 26 27 Anion Gap 9 8 BUN 32 H D 30 H Creatinine 1.2 1.1 Creat Clearance w eGFR > 60 Random Glucose 84 91 Lactic Acid Calcium 8.2 L 8.8 Phosphorus 3.2 3.3 Magnesium 2.3 2.3 Total Bilirubin 0.8 AST 19 ALT 20 Alkaline Phosphatase 40 L Creatine Kinase Creatine Kinase Index CK-MB (CK-2) CK-MB (CK-2) Rel Index Troponin I Total Protein 6.0 L Albumin 3.5 11/28/16 11/28/16 11/28/16 05:10 05:10 06:00 WBC 6.9 RBC 3.07 L Hgb 10.1 L Hct 29.2 L MCV 95.1 MCHC 34.7 RDW 12.9 Plt Count 157 MPV 8.8 Neutrophils % 65.8 Lymphocytes % 23.4 D Monocytes % 8.6 Eosinophils % 1.7 Basophils % 0.5 INR PTT (Actin FS) Sodium Potassium Chloride Carbon Dioxide Anion Gap BUN Creatinine Creat Clearance w eGFR Random Glucose Lactic Acid Calcium Phosphorus Magnesium Total Bilirubin AST ALT Alkaline Phosphatase Creatine Kinase 212 Creatine Kinase Index 2.2 CK-MB (CK-2) 4.612 H CK-MB (CK-2) Rel Index Cancelled Troponin I 0.05 Total Protein Albumin Active Medications Generic Name Dose Route Start Last Admin Trade Name Freq PRN Reason Stop Dose Admin Atorvastatin Calcium 40 mg 11/28/16 22:00 Lipitor - PO HS JOSE E Chlorhexidine Gluconate 1 applic 11/28/16 22:00 Hibiclens For Decolonization - TP HS JOSE E Pantoprazole Sodium 80 mg/ 100 mls @ 10 mls/hr 11/28/16 12:00 Sodium Chloride IVPB Q10H JOSE E 8 MG/HR Sodium Chloride 1,000 mls @ 75 mls/hr 11/28/16 09:12 Normal Saline - IV ASDIR JOSE E Magnesium Citrate 300 ml 11/28/16 20:04 Citroma - PO 11/28/16 20:05 ONCE ONE Metoprolol Succinate 50 mg 11/28/16 10:00 Toprol Xl - PO BID JOSE E Multivitamins/Minerals/Vitamin C 1 tab 11/28/16 10:00 Tab-A-Vit - PO DAILY JOSE E Mupirocin 1 applic 11/28/16 10:00 Bactroban Ointment (For Decolonization) - NS 12/02/16 21:59 BID JOSE E Sodium Phosphate 133 ml 11/29/16 05:02 Fleet Adult Rectal Enema - DC 11/29/16 05:03 ONCE ONE Sodium Phosphate 133 ml 11/29/16 05:07 Fleet Adult Rectal Enema - DC 11/29/16 05:08 ONCE PRN ASSESSMENT/PLAN: 85 yo M with PMHx GIB, HTN, HLD, CAD, and colon ca. admitted to ICU for GI bleed and hypotension. Neuro: * AAOx3 Pulm: * Supplemental O2 PRN * maintain O2 sat >90% CV: * Followed by Dr. Samuel his invoicing specialist. * BP has been slightly elevated today. * restart Ramipril post colonoscopy tomorrow. 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 * ASA held for GIB * Protonix drip Renal: * LULU improving. * gentle hydration * avoid nephrotoxins. * repeat labs in AM F/E/N * IVF NS @ 75ml/hr * BUN and Cr elevated will repeat CMP in AM * Advanced to clears. NPO after midnight for colonscopy tomorrow DISPO:Transfer to tele. Visit type - Emergency Visit Emergency Visit: Yes ED Registration Date: 11/27/16 Care time: The patient presented to the Emergency Department on the above date and was hospitalized for further evaluation of their emergent condition. - New Patient This patient is new to me today: No - Critical Care Critical Care patient: Yes Total Critical Care Time (in minutes): 33 Critical Care Statement: The care of this patient involved high complexity decision making to prevent further life threatening deterioration of the patient 's condition and/or to evalute & treat vital organ system(s) failure or risk of failure.
--- NOTE | 2016-11-28 11:52 | PN ---
Teaching Attending Note Name of Resident: Ousmane Greenwood ATTENDING PHYSICIAN STATEMENT I saw and evaluated the patient. I reviewed the resident's note and discussed the case with the resident. I agree with the resident's findings and plan as documented. SUBJECTIVE: Pt seen and examined in the ICU. s/p EGD showing gastric AVMs. No further bleeding noted. No abdominal pain, nausea or vomiting. No chest pain or shortness of breath. OBJECTIVE: Last Vital Signs Temp Pulse Resp BP Pulse Ox 98 F 61 16 146/58 98 11/28/16 08:00 11/28/16 10:50 11/28/16 10:50 11/28/16 10:50 11/27/16 22:00 Intake & Output 11/25/16 11/26/16 11/27/16 11/28/16 23:59 23:59 23:59 23:59 Intake Total 300 1270 Output Total 850 850 Balance -550 420 Weight 149 lb 147 lb Gen: NAD at rest Heart: RRR, +systolic murmur Lung: decreased breath sounds at the bases Abd: soft, nontender Ext: no edema CBC, BMP 11/28/16 06:00 11/28/16 05:10 Active Medications Atorvastatin Calcium (Lipitor -) 40 mg PO HS JOSE E Chlorhexidine Gluconate (Hibiclens For Decolonization -) 1 applic TP HS JOSE E Pantoprazole Sodium 80 mg/ (Sodium Chloride) 100 mls @ 10 mls/hr IVPB Q10H [facility] PRN Reason: 8 MG/HR Sodium Chloride (Normal Saline -) 1,000 mls @ 75 mls/hr IV ASDIR [facility] Last Admin: 11/28/16 11:46 Dose: 75 mls/hr Magnesium Citrate (Citroma -) 300 ml PO ONCE ONE Stop: 11/28/16 20:05 Metoprolol Succinate (Toprol Xl -) 50 mg PO BID [facility] Last Admin: 11/28/16 11:45 Dose: 50 mg Multivitamins/Minerals/Vitamin C (Tab-A-Vit -) 1 tab PO DAILY [facility] Last Admin: 11/28/16 11:46 Dose: 1 tab Mupirocin (Bactroban Ointment (For Decolonization) -) 1 applic NS BID [facility] Stop: 12/02/16 21:59 Sodium Phosphate (Fleet Adult Rectal Enema -) 133 ml ID ONCE ONE Stop: 11/29/16 05:03 Sodium Phosphate (Fleet Adult Rectal Enema -) 133 ml ID ONCE PRN Stop: 11/29/16 05:08 ASSESSMENT AND PLAN: GI Bleed Symptomatic Anemia Paroxysmal Atrial Fibrillation s/p PPM CAD s/p stents h/o Colon Ca - monitor H/H - transfuse as needed - for colonoscopy - protonix - PO per GI - mechanical DVT prophylaxis - can monitor on floor
[2016-11-28] MEDS ORDERED: PANTOPRAZOLE SODIUM 80 MG in SODIUM CHLORIDE 100 ML IVPB SCH (12:00)
--- NOTE | 2016-11-28 12:25 | PN ---
Teaching Attending Note Name of Resident: Bertrand Vega ATTENDING PHYSICIAN STATEMENT I saw and evaluated the patient. I reviewed the resident's note and discussed the case with the resident. I agree with the resident's findings and plan as documented. SUBJECTIVE: no fever or chills , slept well , no BMS in house . NO abd pain . had EGD this am . no N/V . OBJECTIVE: NAD , AAOx3 , very pleasant and cooperative CV: RRR, 2-4 /6 SM at RUSB, LLSB, and apex. NO radiatio to carotids . Lungs : CTAB ext : no edema ABd : soft, NT, ND , NL BS . ASSESSMENT AND PLAN: 85 y/o with h/o 3rd degree AV block , s/p PAce maker , HTN, Upper GI bleed , P AFib not o n anticoagulation who presented with melena x 1 week , was found to have anemia , + FOBT and orthostatic hypotension 1- Acute blood loss anemia , likely due to upper GI bleed . Hemo-dynamically stable now . - EGD report still pending . per ICU resident , gastric AVMs were found, with o active source of bleed - change to IV PPI bid - Colonoscopy tomorrow - repeat CBC in evening - repeat orthostatics - appreciate further GI recs - cont IVF - hold ASA 2- Hypotension : due to hypovolemia from GI bleed - was given BB this am , now SBP in 90s . HOld BB and monitor - cont to hold Rampiril 3- H/o 3rd degree AV block . s/p Pace maker 4- dispo : transfer to floor
--- NOTE | 2016-11-28 12:51 | PN ---
Progress Note, Physician History of Present Illness: No new complaints. Denies chest pain or dyspnea. - Current Medication List Current Medications: Active Medications Atorvastatin Calcium (Lipitor -) 40 mg PO HS JOSE E Chlorhexidine Gluconate (Hibiclens For Decolonization -) 1 applic TP HS JOSE E Pantoprazole Sodium 80 mg/ (Sodium Chloride) 100 mls @ 10 mls/hr IVPB Q10H JOSE E PRN Reason: 8 MG/HR Sodium Chloride (Normal Saline -) 1,000 mls @ 75 mls/hr IV ASDIR [facility] Last Admin: 11/28/16 11:46 Dose: 75 mls/hr Magnesium Citrate (Citroma -) 300 ml PO ONCE ONE Stop: 11/28/16 20:05 Multivitamins/Minerals/Vitamin C (Tab-A-Vit -) 1 tab PO DAILY [facility] Last Admin: 11/28/16 11:46 Dose: 1 tab Mupirocin (Bactroban Ointment (For Decolonization) -) 1 applic NS BID [facility] Stop: 12/02/16 21:59 Sodium Phosphate (Fleet Adult Rectal Enema -) 133 ml VT ONCE ONE Stop: 11/29/16 05:03 Sodium Phosphate (Fleet Adult Rectal Enema -) 133 ml VT ONCE PRN Stop: 11/29/16 05:08 - Objective Vital Signs: Vital Signs Temperature 98 F 11/28/16 12:00 Pulse Rate 62 11/28/16 12:00 Respiratory Rate 16 11/28/16 12:00 Blood Pressure 96/81 11/28/16 12:00 O2 Sat by Pulse Oximetry (%) 98 11/27/16 22:00 Constitutional: Yes: No Distress Eyes: Yes: Conjunctiva Clear, EOM Intact HENT: Yes: Atraumatic, Normocephalic Cardiovascular: Yes: Regular Rate and Rhythm Respiratory: Yes: CTA Bilaterally Gastrointestinal: Yes: Normal Bowel Sounds, Soft Edema: No Neurological: Yes: Alert, Oriented, Cran Nerves II-XII Intact Psychiatric: Yes: Alert, Oriented Labs: CBC, BMP 11/28/16 06:00 11/28/16 05:10 INR, PTT INR 1.14 (0.82-1.09) 11/27/16 22:20 Assessment/Plan 85 yo male with HTN, hyperlipidemia, complete AV block with pacemaker ([employer]), paroxysmal afib, CAD, PCI of mLAD & OM1 in 11/2005 and PCI in 03/2006 , mild aortic stenosis, h/o colon cancer (resection and chemo), and prior GI bleed in 09/2013 (Plavix discontinued at that time) & again in 03/2014. Now admitted with melena and anemia. EGD today demonstrated AVMs. RECS: Continue to hold aspirin. Colonoscopy pending for tomorrow. BP meds currently on hold due to low BP. Will follow. Call with questions.
--- NOTE | 2016-11-28 13:26 | FALL ---
Fall Exam - Event Witnessed fall: Yes Location of Fall: Patient Room Fall from: OOB-chair - Pre-Fall Fall Risk: High Risk Mental Status: Alert Current Medications: Current Medications Generic Name Dose Route Start Last Admin Trade Name Freq PRN Reason Stop Dose Admin Atorvastatin Calcium 40 mg 11/28/16 22:00 Lipitor - PO HS JOSE E Chlorhexidine Gluconate 1 applic 11/28/16 22:00 Hibiclens For Decolonization - TP HS JOSE E Pantoprazole Sodium 80 mg/ 100 mls @ 10 mls/hr 11/28/16 12:00 Sodium Chloride IVPB Q10H JOSE E 8 MG/HR Sodium Chloride 1,000 mls @ 75 mls/hr 11/28/16 09:12 11/28/16 11:46 Normal Saline - IV 75 mls/hr ASDIR JOSE E Administration Magnesium Citrate 300 ml 11/28/16 20:04 Citroma - PO 11/28/16 20:05 ONCE ONE Multivitamins/Minerals/Vitamin C 1 tab 11/28/16 10:00 11/28/16 11:46 Tab-A-Vit - PO 1 tab DAILY JOSE E Administration Mupirocin 1 applic 11/28/16 10:00 Bactroban Ointment (For Decolonization) - NS 12/02/16 21:59 BID JOSE E Sodium Phosphate 133 ml 11/29/16 05:02 Fleet Adult Rectal Enema - ID 11/29/16 05:03 ONCE ONE Sodium Phosphate 133 ml 11/29/16 05:07 Fleet Adult Rectal Enema - ID 11/29/16 05:08 ONCE PRN 11/28/16 13:24 - Post-Fall Patient Outcome: No Injury Treatment: None Vital Signs: Vital Signs Temperature 98 F 11/28/16 12:00 Pulse Rate 62 11/28/16 12:00 Respiratory Rate 16 11/28/16 12:00 Blood Pressure 96/81 11/28/16 12:00 O2 Sat by Pulse Oximetry (%) 98 11/27/16 22:00 LOC Post-Fall: Unchanged, Awake, Alert, Oriented Identify factors for HIGH RISK for Head Injury: Known to have hit head (CT head orderd and was (-) for acute bleed or IC pathology.) Critical Care Total Critical Care Time (in minutes): 20
[2016-11-28] MEDS ORDERED: MAGNESIUM CITRATE 300 ML BOTTLE PO ONE ×2 (20:04)
[2016-11-28 20:08] LABS: MCH 32.7 pg (25.7-33.7); MCHC 34.3 g/dl (32.0-35.9); MEAN CELL VOLUME 95.4 fl (80-96); MEAN PLT VOLUME 8.7 fl (7.5-11.1); PLATELET COUNT 160 K/MM3 (134-434); RDW 12.9 % (11.9-15.9); WHITE BLOOD COUNT 8.1 K/mm3 (4.0-10.0)
[2016-11-28] MEDS: SODIUM CHLORIDE 1,000 ML IV SCH (20:12)
[2016-11-28] MEDS: ATORVASTATIN CA 40 MG TABLET (FP) PO SCH (21:06)
[2016-11-28] MEDS ORDERED: ATORVASTATIN CA 40 MG TABLET (FP) PO SCH (22:00)
[2016-11-28] MEDS ORDERED: CHLORHEXIDINE GLUCONATE 4% CLEANSER FOR DECOLONIZATION TP SCH ×3 (22:00)
--- NOTE | 2016-11-28 23:33 | EKG ---
Test Reason : Blood Pressure : / mmHG Vent. Rate : 060 BPM Atrial Rate : 060 BPM P-R Int : 000 ms QRS Dur : 184 ms QT Int : 496 ms P-R-T Axes : 000 -71 121 degrees QTc Int : 496 ms AV SEQUENTIAL OR DUAL CHAMBER ELECTRONIC PACEMAKER LEFT AXIS DEVIATION ABNORMAL ECG NO PREVIOUS ECGS AVAILABLE Confirmed by ANETTE HOLBROOK, JENNIFER ([id number]) on 11/28/2016 11:33:12 PM Referred By: MARIE Confirmed By:JENNIFER CHEEMA MD
[2016-11-29] MEDS ORDERED: SODIUM PHOSPHATE/NA BIPHOS 133 ML ENEMA PR ONE ×2 (05:02)
[2016-11-29] MEDS ORDERED: SODIUM PHOSPHATE/NA BIPHOS 133 ML ENEMA PR PRN ×2 (05:07)
[2016-11-29 07:28] LABS: BASOPHIL 0.3 % (0-2.0); EOSINOPHIL 0.9 % (0-4.5); MCHC 35.1 g/dl (32.0-35.9); MEAN CELL VOLUME 94.1 fl (80-96); MEAN PLT VOLUME 8.3 fl (7.5-11.1); NEUTROPHILS 76.8 % (42.8-82.8); PLATELET COUNT 132 K/MM3 (134-434); RDW 12.8 % (11.9-15.9); WHITE BLOOD COUNT 6.5 K/mm3 (4.0-10.0)
[2016-11-29 07:53] LABS: ALBUMIN 3.4 g/dl (3.4-5.0); ANION GAP 8 (8-16); CO2 25 mmol/L (21-32); GLUCOSE,RANDOM 110 mg/dL (74-106); SGOT/AST 33 U/L (15-37); SGPT/ALT 21 U/L (12-78)
[2016-11-29 07:54] LABS: ALK PHOS 42 U/L (45-117); BILIRUBIN,TOTAL 0.8 mg/dL (0.2-1.0); TOT PROT 5.7 g/dl (6.4-8.2)
[2016-11-29] MEDS: PANTOPRAZOLE SODIUM 80 MG in SODIUM CHLORIDE 100 ML IVPB SCH ×2 (08:38→18:45)
--- NOTE | 2016-11-29 08:58 | PN ---
Teaching Attending Note Name of Resident: Bertrand Vega ATTENDING PHYSICIAN STATEMENT I saw and evaluated the patient. I reviewed the resident's note and discussed the case with the resident. I agree with the resident's findings and plan as documented. SUBJECTIVE: Patient is feeling better, with no acute distress. No shortness of breath, no nausea or vomiting. OBJECTIVE: Vital Signs Temperature 97.8 F 11/29/16 06:00 Pulse Rate 65 11/29/16 06:00 Respiratory Rate 20 11/29/16 06:00 Blood Pressure 135/73 11/29/16 06:00 O2 Sat by Pulse Oximetry (%) 96 11/28/16 21:00 NAD , AAOx3 , very pleasant and cooperative CV: RRR,WENDY 2/6 at RUSB, LLSB, and apex. NO radiation to carotids . Lungs : CTAB ext : no edema ABd : soft, NT, ND , NL BS . CBCD WBC 6.5 K/mm3 (4.0-10.0) 11/29/16 05:35 RBC 2.82 M/mm3 (4.00-5.60) L 11/29/16 05:35 Hgb 9.3 GM/dL (11.7-16.9) L 11/29/16 05:35 Hct 26.5 % (35.4-49) L 11/29/16 05:35 MCV 94.1 fl (80-96) 11/29/16 05:35 MCHC 35.1 g/dl (32.0-35.9) 11/29/16 05:35 RDW 12.8 % (11.9-15.9) 11/29/16 05:35 Plt Count 132 K/MM3 (134-434) L 11/29/16 05:35 MPV 8.3 fl (7.5-11.1) 11/29/16 05:35 CMP Sodium 142 mmol/L (136-145) 11/29/16 05:35 Potassium 4.3 mmol/L (3.5-5.1) 11/29/16 05:35 Chloride 109 mmol/L (98-107) H 11/29/16 05:35 Carbon Dioxide 25 mmol/L (21-32) 11/29/16 05:35 Anion Gap 8 (8-16) 11/29/16 05:35 BUN 24 mg/dL (7-18) H 11/29/16 05:35 Creatinine 1.0 mg/dL (0.7-1.3) 11/29/16 05:35 Creat Clearance w eGFR > 60 (>60) 11/29/16 05:35 Random Glucose 110 mg/dL (74-106) H D 11/29/16 05:35 Calcium 8.0 mg/dL (8.5-10.1) L 11/29/16 05:35 Total Bilirubin 0.8 mg/dL (0.2-1.0) 11/29/16 05:35 AST 33 U/L (15-37) D 11/29/16 05:35 ALT 21 U/L (12-78) 11/29/16 05:35 Alkaline Phosphatase 42 U/L (45-117) L 11/29/16 05:35 Total Protein 5.7 g/dl (6.4-8.2) L 11/29/16 05:35 Albumin 3.4 g/dl (3.4-5.0) 11/29/16 05:35 CARDIAC ENZYMES Creatine Kinase 212 IU/L (39-308) 11/28/16 05:10 Troponin I 0.05 ng/ml (0.00-0.05) 11/28/16 05:10 Current Medications Generic Name Dose Route Start Last Admin Trade Name Freq PRN Reason Stop Dose Admin Atorvastatin Calcium 40 mg 11/28/16 22:00 11/28/16 21:06 Lipitor - PO 40 mg HS JOSE E Administration Pantoprazole Sodium 80 mg/ 100 mls @ 10 mls/hr 11/28/16 22:00 11/29/16 08:38 Sodium Chloride IVPB Not Given Q10H JOSE E 8 MG/HR Sodium Chloride 1,000 mls @ 75 mls/hr 11/28/16 14:33 11/28/16 20:12 Normal Saline - IV 75 mls/hr ASDIR JOSE E Administration Multivitamins/Minerals/Vitamin C 1 tab 11/29/16 10:00 Tab-A-Vit - PO DAILY [facility] Medication Instructions Recorded Metoprolol Succinate [Toprol XL -] 50 mg PO BID 10/09/13 Multivitamin [Multivitamins] 1 each PO DAILY 10/09/13 Ramipril 2.5 mg PO DAILY 10/09/13 Simvastatin [Zocor] 80 mg PO HS 10/09/13 Pantoprazole Sodium [Protonix -] 40 mg PO DAILY #30 tablet.ec 10/11/13 Aspirin [Aspirin EC] 81 mg PO DAILY 11/27/16 ASSESSMENT AND PLAN: 85 y/o with h/o 3rd degree AV block , s/p PAce maker , HTN, Upper GI bleed , P AFib not o n anticoagulation who presented with melena x 1 week , was found to have anemia , + FOBT and orthostatic hypotension # Acute blood loss likely due to upper GI bleed,melena. # Normocytic anemia 9.3/26.5 , s/p EGD , s/p Colonscopy official report pending , cont IVF , hold ASA, possible another colonscopy in am, will discuss with # Hypotension improved now : from GI bleed # H/o 3rd degree AV block . s/p Pace maker DVT Px:
[2016-11-29] MEDS ORDERED: POLYETHYLENE GLYCOL 3350 255 GM BTL PO ONE (09:24)
[2016-11-29] MEDS: MULTIVITAMINS (DAILY MVI) TABLET (FP) PO SCH (10:00)
--- NOTE | 2016-11-29 12:34 | PATH ---
Surgical Pathology Report Patient Name: LEVI GAUTAM Med. Rec. #: [id number] /Age/Gender: 1930 (Age: 85) / M Account: [id number] Location: [facility] R Taken: 11/28/2016 Received: 11/28/2016 Reported: 11/29/2016 Physicians: eLnny Chi M.D. Specimen(s) Received BX NODULAR MUCOSA IN BODY OF STOMACH Clinical History Melena Nodular mucosa in body of stomach, gastric AVMs Final Diagnosis STOMACH, BODY, NODULAR MUCOSA, BIOPSY: GASTRIC OXYNTIC MUCOSA WITH MODERATE CHRONIC GASTRITIS FOCAL CHANGES SUGGESTIVE OF PPI EFFECT. IMMUNOSTAIN FOR H. PYLORI IS NEGATIVE FOR ORGANISMS. Electronically Signed Andrei Cuevas M.D. Gross Description Received in formalin, labeled "biopsy nodular mucosa in body of stomach" are 2 willard, irregular portions of soft tissue measuring 0.3 and 0.5 cm in greatest dimension. The specimens are submitted in toto in one cassette. 11/28/201611/28/2016
--- NOTE | 2016-11-29 13:58 | PN ---
Physical Exam: SUBJECTIVE: Patient seen and examined seen post colonoscopy. EGD yesterday with AVM. denies chest pain, SOB, abdominal pain, N/v, fever, headache, dizziness, palpitations. OBJECTIVE: Vital Signs Period Temp Pulse Resp BP Sys/Pulido Pulse Ox Last 24 Hr 97.2 F-98.3 F 60-68 16-20 115-139/51-95 96-100 GENERAL: The patient is awake, alert, and fully oriented, in no acute distress. LUNGS: Breath sounds equal, clear to auscultation bilaterally, HEART:regular rate and rhythm, S1, S2 with systolic murmur ABDOMEN: Soft, nontender, nondistended, normoactive bowel sounds EXTREMITIES: 2+ pulses, warm, well-perfused, no edema. PSYCH: Normal mood, normal affect. Laboratory Results - last 24 hr 11/28/16 11/29/16 11/29/16 18:55 05:35 05:35 WBC 8.1 6.5 RBC 3.01 L 2.82 L Hgb 9.9 L 9.3 L Hct 28.8 L 26.5 L MCV 95.4 94.1 MCHC 34.3 35.1 RDW 12.9 12.8 Plt Count 160 132 L MPV 8.7 8.3 Neutrophils % 76.8 Lymphocytes % 15.1 D Monocytes % 6.9 Eosinophils % 0.9 Basophils % 0.3 Sodium 142 Potassium 4.3 Chloride 109 H Carbon Dioxide 25 Anion Gap 8 BUN 24 H Creatinine 1.0 Creat Clearance w eGFR > 60 Random Glucose 110 H D Calcium 8.0 L Total Bilirubin 0.8 AST 33 D ALT 21 Alkaline Phosphatase 42 L Total Protein 5.7 L Albumin 3.4 Active Medications Generic Name Dose Route Start Last Admin Trade Name Freq PRN Reason Stop Dose Admin Atorvastatin Calcium 40 mg 11/28/16 22:00 11/28/16 21:06 Lipitor - PO 40 mg HS JOSE E Administration Pantoprazole Sodium 80 mg/ 100 mls @ 10 mls/hr 11/28/16 22:00 11/29/16 08:38 Sodium Chloride IVPB Not Given Q10H JOSE E 8 MG/HR Sodium Chloride 1,000 mls @ 75 mls/hr 11/28/16 14:33 11/28/16 20:12 Normal Saline - IV 75 mls/hr ASDIR JOSE E Administration Magnesium Citrate 300 ml 11/29/16 18:00 Citroma - PO 11/29/16 18:01 ONCE ONE Multivitamins/Minerals/Vitamin C 1 tab 11/29/16 10:00 11/29/16 10:00 Tab-A-Vit - PO Not Given DAILY JOSE E Sodium Phosphate 133 ml 11/30/16 05:00 Fleet Adult Rectal Enema - ND 11/30/16 05:01 ONCE ONE ASSESSMENT/PLAN: 85 yo man with hx of GI bleed, HTN, CAD, with pacemaker, hx of colon cancer, admitted to ICU for GI bleed and hypotension. - EGD with AVM, today's colonoscopy with poor prep, Dr. Chi to repeat in the AM #GI bleed - currently stable, transfuse if <8.0 - clear liquid diet - NPO at midnight hold ASA - clear liquid diet and bowel prep for tomorrow. #Hypotension, improved. - IVF @75ml/hr - hold ramipril and toprol for tonight given npo and for colonoscopy tomorrow. - Dr. Samuel, cardio consulted #LULU, elevated Cr 1.5 (baseline 1.2) - resolved, Cr now 1.0 - likely prerenal due to GI bleed - IVF NS 75ml/hr #diet - npo #SCD for DVT given bleed Visit type - Emergency Visit Emergency Visit: No - New Patient This patient is new to me today: No - Critical Care Critical Care patient: No - Discharge Referral Referred to [facility] Med P.C.: No
--- NOTE | 2016-11-29 14:40 | PN ---
Progress Note, Physician History of Present Illness: No new complaints. Denies chest pain or dyspnea. Patient with poor bowel prep. Repeat colonoscopy scheduled for tomorrow. - Current Medication List Current Medications: Active Medications Atorvastatin Calcium (Lipitor -) 40 mg PO HS [facility] Last Admin: 11/28/16 21:06 Dose: 40 mg Pantoprazole Sodium 80 mg/ (Sodium Chloride) 100 mls @ 10 mls/hr IVPB Q10H JOSE E PRN Reason: 8 MG/HR Last Admin: 11/29/16 08:38 Dose: Not Given Sodium Chloride (Normal Saline -) 1,000 mls @ 75 mls/hr IV ASDIR [facility] Last Admin: 11/28/16 20:12 Dose: 75 mls/hr Magnesium Citrate (Citroma -) 300 ml PO ONCE ONE Stop: 11/29/16 18:01 Multivitamins/Minerals/Vitamin C (Tab-A-Vit -) 1 tab PO DAILY [facility] Last Admin: 11/29/16 10:00 Dose: Not Given Sodium Phosphate (Fleet Adult Rectal Enema -) 133 ml [place] ONCE ONE Stop: 11/30/16 05:01 - Objective Vital Signs: Vital Signs Temperature 98.0 F 11/29/16 10:07 Pulse Rate 68 11/29/16 10:07 Respiratory Rate 18 11/29/16 10:07 Blood Pressure 118/87 11/29/16 10:07 O2 Sat by Pulse Oximetry (%) 96 11/29/16 10:07 Constitutional: Yes: Well Nourished, No Distress Eyes: Yes: Conjunctiva Clear, EOM Intact Cardiovascular: Yes: Regular Rate and Rhythm. No: JVD Respiratory: Yes: CTA Bilaterally Gastrointestinal: Yes: Normal Bowel Sounds, Soft. No: Tenderness Edema: No Neurological: Yes: Alert, Oriented, Cran Nerves II-XII Intact ...Motor Strength: WNL Psychiatric: Yes: WNL Labs: CBC, BMP 11/29/16 05:35 11/29/16 05:35 INR, PTT INR 1.14 (0.82-1.09) 11/27/16 22:20 Assessment/Plan 85 yo male with HTN, hyperlipidemia, complete AV block with pacemaker ([employer]), paroxysmal afib, CAD, PCI of mLAD & OM1 in 11/2005 and PCI in 03/2006 , mild aortic stenosis, h/o colon cancer (resection and chemo), and prior GI bleed in 09/2013 (Plavix discontinued at that time) & again in 03/2014. Now admitted with melena and anemia. EGD 11/28 demonstrated AVMs. RECS: Continue to hold aspirin. Repeat attempt w/ colonoscopy pending for tomorrow. BP meds currently on hold due to low BP. Will follow. Call with questions.
[2016-11-29] MEDS ORDERED: MAGNESIUM CITRATE 300 ML BOTTLE PO ONE (18:00)
[2016-11-29] MEDS: SODIUM CHLORIDE 1,000 ML IV SCH (18:45)
[2016-11-29] MEDS: ATORVASTATIN CA 40 MG TABLET (FP) PO SCH (21:16)
[2016-11-30] MEDS: PANTOPRAZOLE SODIUM 80 MG in SODIUM CHLORIDE 100 ML IVPB SCH ×2 (04:00→14:10)
[2016-11-30] MEDS ORDERED: SODIUM PHOSPHATE/NA BIPHOS 133 ML ENEMA PR ONE (05:00)
[2016-11-30] MEDS ORDERED: PROPOFOL 20 ML ONE ×3 (07:30)
[2016-11-30 07:35] LABS: BASOPHIL 0.5 % (0-2.0); MCH 32.8 pg (25.7-33.7); MCHC 34.6 g/dl (32.0-35.9); MEAN CELL VOLUME 94.8 fl (80-96); MEAN PLT VOLUME 8.1 fl (7.5-11.1); NEUTROPHILS 68.1 % (42.8-82.8); PLATELET COUNT 138 K/MM3 (134-434); RDW 12.6 % (11.9-15.9); WHITE BLOOD COUNT 5.4 K/mm3 (4.0-10.0)
[2016-11-30 08:18] LABS: ALBUMIN 3.4 g/dl (3.4-5.0); ALK PHOS 43 U/L (45-117); ANION GAP 10 (8-16); BILIRUBIN,TOTAL 0.7 mg/dL (0.2-1.0); CALCIUM 8.4 mg/dL (8.5-10.1); CO2 25 mmol/L (21-32); CREATININE 1.1 mg/dL (0.7-1.3); GLUCOSE,RANDOM 93 mg/dL (74-106); SGOT/AST 41 U/L (15-37); SGPT/ALT 26 U/L (12-78); TOT PROT 5.8 g/dl (6.4-8.2)
--- NOTE | 2016-11-30 10:08 | PN ---
Progress Note (short form) - Note Progress Note: ADDENDUM: S/P COLONOSCOPY BLOOD IN COLON BUT NO DIVERTICULOSIS ILEUM CANNULATED WITH NO BLOOD PRESENT SUGGESTING COLONIC LESION WHICH COULD NOT BE IDENTIFIED DESPITE 2 RUNS THROUGH THE COLON WITH CAREFUL WASHING AND INSPECTION OF THE COLONIC MUCOSA. IMP: OCCULT LGIB REC: ANGIO WITH EMBOLIZATION IF THERE IS SIGNIFICANT BLEEDING FALLICK
[2016-11-30] MEDS: MULTIVITAMINS (DAILY MVI) TABLET (FP) PO SCH (10:23)
--- NOTE | 2016-11-30 12:34 | PN ---
Progress Note (short form) - Note Progress Note: Anesthesia Post op Pt seen and examined S:Alert and awake O: Vital Signs Temperature 98.4 F 11/30/16 10:00 Pulse Rate 82 11/30/16 10:00 Respiratory Rate 14 11/30/16 10:00 Blood Pressure 138/72 11/30/16 10:00 O2 Sat by Pulse Oximetry (%) 95 11/30/16 09:28 CBC, BMP 11/30/16 05:35 11/30/16 05:35 A/P: Current Active Problems GI (gastrointestinal hemorrhage) (Acute) s/p incomplete colonoscopy Doing well post op Continue current care Jordan Mullins MD
--- NOTE | 2016-11-30 13:56 | PN ---
Physical Exam: SUBJECTIVE: Patient seen and examined disappointed about results of second colonoscopy. Has been having hematochezia, some brb with stool. denies chest pain, lightheadedness, palpitations, abdominal pain. OBJECTIVE: Vital Signs Period Temp Pulse Resp BP Sys/Pulido Pulse Ox Last 24 Hr 97.2 F-98.6 F 62-82 14-22 113-149/45-78 95-100 GENERAL: The patient is awake, alert, and fully oriented, in no acute distress. LUNGS: Breath sounds equal, clear to auscultation bilaterally, no wheezes, no crackles, no accessory muscle use. HEART: afib, systolic murmur, S1, S2 ABDOMEN: Soft, nontender, nondistended, normoactive bowel sounds, EXTREMITIES: 2+ pulses, warm, well-perfused, no edema. NEUROLOGICAL: Normal speech, gait steady PSYCH: Normal mood, normal affect. SKIN: Warm, dry Laboratory Results - last 24 hr 11/30/16 11/30/16 05:35 05:35 WBC 5.4 RBC 2.68 L Hgb 8.8 L Hct 25.4 L MCV 94.8 MCHC 34.6 RDW 12.6 Plt Count 138 MPV 8.1 Neutrophils % 68.1 Lymphocytes % 21.5 D Monocytes % 7.9 Eosinophils % 2.0 D Basophils % 0.5 Sodium 143 Potassium 4.0 Chloride 108 H Carbon Dioxide 25 Anion Gap 10 BUN 23 H Creatinine 1.1 Creat Clearance w eGFR > 60 Random Glucose 93 Calcium 8.4 L Total Bilirubin 0.7 AST 41 H D ALT 26 D Alkaline Phosphatase 43 L Total Protein 5.8 L Albumin 3.4 Active Medications Generic Name Dose Route Start Last Admin Trade Name Freq PRN Reason Stop Dose Admin Atorvastatin Calcium 40 mg 11/28/16 22:00 11/29/16 21:16 Lipitor - PO 40 mg HS JOSE E Administration Pantoprazole Sodium 80 mg/ 100 mls @ 10 mls/hr 11/28/16 22:00 11/30/16 04:00 Sodium Chloride IVPB 10 mls/hr Q10H JOSE E Administration 8 MG/HR Sodium Chloride 1,000 mls @ 75 mls/hr 11/28/16 14:33 11/29/16 18:45 Normal Saline - IV 75 mls/hr ASDIR JOSE E Administration Multivitamins/Minerals/Vitamin C 1 tab 11/29/16 10:00 11/30/16 10:23 Tab-A-Vit - PO 1 tab DAILY JOSE E Administration ASSESSMENT/PLAN: 85 yo man with hx of GI bleed, HTN, CAD, with pacemaker, hx of colon cancer, admitted to ICU for GI bleed and hypotension. - EGD with AVM, colonoscopy x2, first with poor prep, second showed blood but without diverticulosis - discussed with Dr. Pace, CTA angio may not be indicated in this patient without significant bleed, slow decrease in hgb/hct over days, no acute loss. #GI bleed - currently stable, transfuse if <8.0 - clear liquid diet - hold ASA #Hypotension, improved. - IVF @75ml/hr - holding ramipril and toprol given earlier hypotension, now improved. repeat orthostatics negative for orthostatic hypotension, will restart home medications tomorrow if BP continues to be stable - Dr. Samuel, cardio consulted #LULU, elevated Cr 1.5 (baseline 1.2) - resolved. - likely prerenal due to GI bleed - IVF NS 75ml/hr #diet - clear liquid #SCD for DVT given bleed Visit type - Emergency Visit Emergency Visit: No - New Patient This patient is new to me today: No - Critical Care Critical Care patient: No - Discharge Referral Referred to [facility] Med P.C.: No
[2016-11-30] MEDS: SODIUM CHLORIDE 1,000 ML IV SCH (14:25)
--- NOTE | 2016-11-30 16:17 | PN ---
Progress Note, Physician History of Present Illness: a bit disappointment about results of colonoscopy . was hoping to go home No CP, SOB - Current Medication List Current Medications: Active Medications Atorvastatin Calcium (Lipitor -) 40 mg PO HS [facility] Last Admin: 11/29/16 21:16 Dose: 40 mg Pantoprazole Sodium 80 mg/ (Sodium Chloride) 100 mls @ 10 mls/hr IVPB Q10H JOSE E PRN Reason: 8 MG/HR Last Admin: 11/30/16 04:00 Dose: 10 mls/hr Sodium Chloride (Normal Saline -) 1,000 mls @ 75 mls/hr IV ASDIR [facility] Last Admin: 11/29/16 18:45 Dose: 75 mls/hr Multivitamins/Minerals/Vitamin C (Tab-A-Vit -) 1 tab PO DAILY [facility] Last Admin: 11/30/16 10:23 Dose: 1 tab - Objective Vital Signs: Vital Signs Temperature 98.2 F 11/30/16 14:20 Pulse Rate 70 11/30/16 14:20 Respiratory Rate 18 11/30/16 14:20 Blood Pressure 140/66 11/30/16 14:20 O2 Sat by Pulse Oximetry (%) 95 11/30/16 09:28 Constitutional: Yes: No Distress Eyes: Yes: Conjunctiva Clear HENT: Yes: Atraumatic Neck: Yes: Supple Cardiovascular: Yes: Regular Rate and Rhythm Respiratory: Yes: CTA Bilaterally Gastrointestinal: Yes: Normal Bowel Sounds Edema: No Peripheral Pulses WNL: Yes Neurological: Yes: Alert, Oriented Psychiatric: Yes: Alert, Oriented Labs: CBC, BMP 11/30/16 05:35 11/30/16 05:35 INR, PTT INR 1.14 (0.82-1.09) 11/27/16 22:20 - ....Imaging Other: Other (tele -. paced) Assessment/Plan 85 yo male with HTN, hyperlipidemia, complete AV block with pacemaker ([employer]), paroxysmal afib, CAD, PCI of mLAD & OM1 in 11/2005 and PCI in 03/2006 , mild aortic stenosis, h/o colon cancer (resection and chemo), and prior GI bleed in 09/2013 (Plavix discontinued at that time) & again in 03/2014. Now admitted with melena and anemia. EGD 11/28 demonstrated AVMs. S/p incomplete colonoscopy -> repeated ; blood but no diverticulosis BP meds on hold ecause of low BP RECS: Continue to hold aspirin. Resume BP meds in AM if BP continues to be stable Follow H/H Per GI D/w pt and family
--- NOTE | 2016-11-30 18:21 | PN ---
Teaching Attending Note Name of Resident: Bertrand Vega ATTENDING PHYSICIAN STATEMENT I saw and evaluated the patient. I reviewed the resident's note and discussed the case with the resident. I agree with the resident's findings and plan as documented. SUBJECTIVE: comfortable with no acute distress, went for second colonoscopy today. Still having GI bleed RBRPR. No abdominal pain at this time OBJECTIVE: Vital Signs Temperature 98.2 F 11/30/16 14:20 Pulse Rate 70 11/30/16 14:20 Respiratory Rate 18 11/30/16 14:20 Blood Pressure 140/66 11/30/16 14:20 O2 Sat by Pulse Oximetry (%) 95 11/30/16 09:28 CBCD WBC 5.4 K/mm3 (4.0-10.0) 11/30/16 05:35 RBC 2.68 M/mm3 (4.00-5.60) L 11/30/16 05:35 Hgb 8.8 GM/dL (11.7-16.9) L 11/30/16 05:35 Hct 25.4 % (35.4-49) L 11/30/16 05:35 MCV 94.8 fl (80-96) 11/30/16 05:35 MCHC 34.6 g/dl (32.0-35.9) 11/30/16 05:35 RDW 12.6 % (11.9-15.9) 11/30/16 05:35 Plt Count 138 K/MM3 (134-434) 11/30/16 05:35 MPV 8.1 fl (7.5-11.1) 11/30/16 05:35 CMP Sodium 143 mmol/L (136-145) 11/30/16 05:35 Potassium 4.0 mmol/L (3.5-5.1) 11/30/16 05:35 Chloride 108 mmol/L (98-107) H 11/30/16 05:35 Carbon Dioxide 25 mmol/L (21-32) 11/30/16 05:35 Anion Gap 10 (8-16) 11/30/16 05:35 BUN 23 mg/dL (7-18) H 11/30/16 05:35 Creatinine 1.1 mg/dL (0.7-1.3) 11/30/16 05:35 Creat Clearance w eGFR > 60 (>60) 11/30/16 05:35 Random Glucose 93 mg/dL (74-106) 11/30/16 05:35 Calcium 8.4 mg/dL (8.5-10.1) L 11/30/16 05:35 Total Bilirubin 0.7 mg/dL (0.2-1.0) 11/30/16 05:35 AST 41 U/L (15-37) H D 11/30/16 05:35 ALT 26 U/L (12-78) D 11/30/16 05:35 Alkaline Phosphatase 43 U/L (45-117) L 11/30/16 05:35 Total Protein 5.8 g/dl (6.4-8.2) L 11/30/16 05:35 Albumin 3.4 g/dl (3.4-5.0) 11/30/16 05:35 CARDIAC ENZYMES Creatine Kinase 212 IU/L (39-308) 11/28/16 05:10 Troponin I 0.05 ng/ml (0.00-0.05) 11/28/16 05:10 Current Medications Generic Name Dose Route Start Last Admin Trade Name Freq PRN Reason Stop Dose Admin Atorvastatin Calcium 40 mg 11/28/16 22:00 11/29/16 21:16 Lipitor - PO 40 mg HS JOSE E Administration Pantoprazole Sodium 80 mg/ 100 mls @ 10 mls/hr 11/28/16 22:00 11/30/16 04:00 Sodium Chloride IVPB 10 mls/hr Q10H JOSE E Administration 8 MG/HR Sodium Chloride 1,000 mls @ 75 mls/hr 11/28/16 14:33 11/29/16 18:45 Normal Saline - IV 75 mls/hr ASDIR JOSE E Administration Multivitamins/Minerals/Vitamin C 1 tab 11/29/16 10:00 11/30/16 10:23 Tab-A-Vit - PO 1 tab DAILY JOSE E Administration Home Medications Medication Instructions Recorded Metoprolol Succinate [Toprol XL -] 50 mg PO BID 10/09/13 Multivitamin [Multivitamins] 1 each PO DAILY 10/09/13 Ramipril 2.5 mg PO DAILY 10/09/13 Simvastatin [Zocor] 80 mg PO HS 10/09/13 Pantoprazole Sodium [Protonix -] 40 mg PO DAILY #30 tablet.ec 10/11/13 Aspirin [Aspirin EC] 81 mg PO DAILY 11/27/16 ASSESSMENT AND PLAN: 85 y/o with h/o 3rd degree AV block , s/p PAce maker , HTN, Upper GI bleed , P AFib not o n anticoagulation who presented with melena x 1 week , was found to have anemia , + FOBT and orthostatic hypotension # Normocytic anemia 9.3/26.5 , s/p EGD , s/p Colonscopy x2 , cont IVF , hold ASA, as per patient needs CT Angio. with Emblectomy and discussed with , can be done emergently otherwise to have CTA as pr # Acute blood loss likely due to upper GI bleed # Hypotension improved now : from GI bleed # H/o 3rd degree AV block . s/p Pace maker DVT Px: SCDs
[2016-11-30] MEDS: ATORVASTATIN CA 40 MG TABLET (FP) PO SCH (22:22)
[2016-12-01] MEDS: PANTOPRAZOLE SODIUM 80 MG in SODIUM CHLORIDE 100 ML IVPB SCH ×3 (02:22→22:16)
[2016-12-01 07:58] LABS: MCH 32.9 pg (25.7-33.7); MCHC 34.6 g/dl (32.0-35.9); MEAN PLT VOLUME 8.3 fl (7.5-11.1); PLATELET COUNT 135 K/MM3 (134-434); RDW 12.8 % (11.9-15.9); WHITE BLOOD COUNT 5.4 K/mm3 (4.0-10.0)
[2016-12-01 08:38] LABS: CALCIUM 8.4 mg/dL (8.5-10.1)
[2016-12-01 08:41] LABS: CREATININE 1.1 mg/dL (0.7-1.3)
[2016-12-01] MEDS: MULTIVITAMINS (DAILY MVI) TABLET (FP) PO SCH (09:59)
--- NOTE | 2016-12-01 10:36 | PN ---
Teaching Attending Note Name of Resident: Bertrand Vega ATTENDING PHYSICIAN STATEMENT I saw and evaluated the patient. I reviewed the resident's note and discussed the case with the resident. I agree with the resident's findings and plan as documented. SUBJECTIVE: Patient feels little weak, otherwise has no new complains, no bleeding this morning since had no BM yet. OBJECTIVE: Vital Signs Temperature 98.2 F 12/01/16 06:00 Pulse Rate 74 12/01/16 06:00 Respiratory Rate 18 12/01/16 06:00 Blood Pressure 130/64 12/01/16 06:00 O2 Sat by Pulse Oximetry (%) 95 11/30/16 21:00 GENERAL: The patient is awake, alert, and fully oriented, in no acute distress. LUNGS: Breath sounds equal, CTABL , no wheezes, no crackles, no accessory muscle use. HEART: afib, WENDY 2/6 murmur, S1, S2 positive ABDOMEN: Soft, nontender, nondistended, normoactive bowel sounds, EXTREMITIES: 2+ pulses, warm, well-perfused, no edema. NEUROLOGICAL: Normal speech, gait steady, CN 2-12 grossly intact PSYCH: Normal mood, normal affect. SKIN: Warm, dry, MMM. CBCD WBC 5.4 K/mm3 (4.0-10.0) 12/01/16 05:36 RBC 2.53 M/mm3 (4.00-5.60) L 12/01/16 05:36 Hgb 8.3 GM/dL (11.7-16.9) L 12/01/16 05:36 Hct 24.1 % (35.4-49) L 12/01/16 05:36 MCV 95.0 fl (80-96) 12/01/16 05:36 MCHC 34.6 g/dl (32.0-35.9) 12/01/16 05:36 RDW 12.8 % (11.9-15.9) 12/01/16 05:36 Plt Count 135 K/MM3 (134-434) 12/01/16 05:36 MPV 8.3 fl (7.5-11.1) 12/01/16 05:36 CMP Sodium 143 mmol/L (136-145) 12/01/16 05:36 Potassium 4.1 mmol/L (3.5-5.1) 12/01/16 05:36 Chloride 109 mmol/L (98-107) H 12/01/16 05:36 Carbon Dioxide 23 mmol/L (21-32) 12/01/16 05:36 Anion Gap 11 (8-16) 12/01/16 05:36 BUN 17 mg/dL (7-18) D 12/01/16 05:36 Creatinine 1.1 mg/dL (0.7-1.3) 12/01/16 05:36 Creat Clearance w eGFR > 60 (>60) 11/30/16 05:35 Random Glucose 103 mg/dL (74-106) 12/01/16 05:36 Calcium 8.4 mg/dL (8.5-10.1) L 12/01/16 05:36 Total Bilirubin 0.7 mg/dL (0.2-1.0) 11/30/16 05:35 AST 41 U/L (15-37) H D 11/30/16 05:35 ALT 26 U/L (12-78) D 11/30/16 05:35 Alkaline Phosphatase 43 U/L (45-117) L 11/30/16 05:35 Total Protein 5.8 g/dl (6.4-8.2) L 11/30/16 05:35 Albumin 3.4 g/dl (3.4-5.0) 11/30/16 05:35 CARDIAC ENZYMES Creatine Kinase 212 IU/L (39-308) 11/28/16 05:10 Troponin I 0.05 ng/ml (0.00-0.05) 11/28/16 05:10 Current Medications Generic Name Dose Route Start Last Admin Trade Name Freq PRN Reason Stop Dose Admin Atorvastatin Calcium 40 mg 11/28/16 22:00 11/30/16 22:22 Lipitor - PO 40 mg HS JOSE E Administration Pantoprazole Sodium 80 mg/ 100 mls @ 10 mls/hr 11/28/16 22:00 12/01/16 09:59 Sodium Chloride IVPB 10 mls/hr Q10H JOSE E Administration 8 MG/HR Sodium Chloride 1,000 mls @ 75 mls/hr 11/28/16 14:33 11/30/16 14:25 Normal Saline - IV 75 mls/hr ASDIR JOSE E Administration Multivitamins/Minerals/Vitamin C 1 tab 11/29/16 10:00 12/01/16 09:59 Tab-A-Vit - PO 1 tab DAILY JOSE E Administration Laboratory Tests 11/27/16 11/27/16 11/27/16 10:45 18:20 22:20 Hgb 12.1 D 9.6 L 9.7 L 11/28/16 11/28/16 11/29/16 06:00 18:55 05:35 Hgb 10.1 L 9.9 L 9.3 L 11/30/16 12/01/16 05:35 05:36 Hgb 8.8 L 8.3 L ASSESSMENT AND PLAN: 85 y/o with h/o 3rd degree AV block , s/p PAce maker , HTN, Upper GI bleed , P AFib not o n anticoagulation who presented with melena x 1 week , was found to have anemia , + FOBT and orthostatic hypotension # Normocytic anemia , s/p EGD , s/p Colonscopy x2 , ordered CTA abd and pelvis with and without contrast, discussed with , cont IVF , hold ASA, possible Angio. with Emblectomy as per , if needed can be done emergently. # Acute blood loss likely due GI bleed upper vs lower s/p EDG and Colonoscopy x2 # Hypotension improved now : from GI bleed # H/o 3rd degree AV block . s/p Pace maker DVT Px: SCDs
--- NOTE | 2016-12-01 15:32 | PN ---
Progress Note, Physician History of Present Illness: Walked to [email or web address] -. feels a little LH Had chest discomfort moving in bed -. felt muscular. None with walking - Current Medication List Current Medications: Active Medications Atorvastatin Calcium (Lipitor -) 40 mg PO HS [facility] Last Admin: 11/30/16 22:22 Dose: 40 mg Pantoprazole Sodium 80 mg/ (Sodium Chloride) 100 mls @ 10 mls/hr IVPB Q10H JOSE E PRN Reason: 8 MG/HR Last Admin: 12/01/16 09:59 Dose: 10 mls/hr Sodium Chloride (Normal Saline -) 1,000 mls @ 75 mls/hr IV ASDIR [facility] Last Admin: 11/30/16 14:25 Dose: 75 mls/hr Multivitamins/Minerals/Vitamin C (Tab-A-Vit -) 1 tab PO DAILY [facility] Last Admin: 12/01/16 09:59 Dose: 1 tab - Objective Vital Signs: Vital Signs Temperature 98.6 F 12/01/16 10:00 Pulse Rate 80 12/01/16 10:00 Respiratory Rate 18 12/01/16 10:00 Blood Pressure 122/74 12/01/16 10:00 O2 Sat by Pulse Oximetry (%) 96 12/01/16 10:00 Constitutional: Yes: No Distress Eyes: Yes: Conjunctiva Clear HENT: Yes: Atraumatic Neck: Yes: Supple Cardiovascular: Yes: Regular Rate and Rhythm Respiratory: Yes: CTA Bilaterally Gastrointestinal: Yes: Normal Bowel Sounds, Tenderness (mild) Edema: No Peripheral Pulses WNL: Yes Neurological: Yes: Alert, Oriented Psychiatric: Yes: Alert, Oriented Labs: CBC, BMP 12/01/16 05:36 12/01/16 05:36 INR, PTT INR 1.14 (0.82-1.09) 11/27/16 22:20 - ....Imaging Other: Other (tele -. paced) Assessment/Plan 85 yo male with HTN, hyperlipidemia, complete AV block with pacemaker ([employer]), paroxysmal afib, CAD, PCI of mLAD & OM1 in 11/2005 and PCI in 03/2006 , mild aortic stenosis, h/o colon cancer (resection and chemo), and prior GI bleed in 09/2013 (Plavix discontinued at that time) & again in 03/2014. Now admitted with melena and anemia. EGD 11/28 demonstrated AVMs. S/p incomplete colonoscopy -> repeated; blood but no diverticulosis BP meds on hold because of low BP BP ok H/H a bit lower today -. s/p abd/pelvic CT -. results pending RECS: Continue to hold aspirin. Cont holding BP meds Follow H/H Per GI D/w pt and family
--- NOTE | 2016-12-01 17:47 | PN ---
GI Progress Note Subjective: Patient seen. Family at bedside. Still having rectal bleeding-slow bleed. He is hemodynamically stable. Hgb 8.3 - Objective Vital Signs: Vital Signs Temperature 98.6 F 12/01/16 10:00 Pulse Rate 80 12/01/16 10:00 Respiratory Rate 18 12/01/16 10:00 Blood Pressure 122/74 12/01/16 10:00 O2 Sat by Pulse Oximetry (%) 96 12/01/16 10:00 Constitutional: Well Nourished, Calm HENT: Yes: Normocephalic Neck: Yes: Trachea Midline Cardiovascular: Yes: Regular Rate and Rhythm (80) Respiratory: Yes: CTA Bilaterally ...Auscultate: Yes: Normoactive Bowel Sounds ...Palpate: Yes: Soft. No: Tenderness Labs: CBC, BMP 12/01/16 05:36 12/01/16 05:36 INR, PTT INR 1.14 (0.82-1.09) 11/27/16 22:20 - ....Imaging Cat Scan: Pending (CTA-not read yet) Assessment/Plan S/P colonoscopy with blood noted in colon, no blood in small bowel, suggesting source in colon. Likely small vascular lesion, as not visible with 2 passes of the scope. CTA done but not read. Await official reading Further management pending read on CTA. Discussed with family who are aware
[2016-12-01 21:36] LABS: MCH 32.1 pg (25.7-33.7); MCHC 33.9 g/dl (32.0-35.9); MEAN CELL VOLUME 94.9 fl (80-96); MEAN PLT VOLUME 8.3 fl (7.5-11.1); PLATELET COUNT 147 K/MM3 (134-434); WHITE BLOOD COUNT 6.6 K/mm3 (4.0-10.0)
[2016-12-01] MEDS ORDERED: ACETAMINOPHEN 325 MG TABLET (FP) ONE (22:11)
[2016-12-01] MEDS: ATORVASTATIN CA 40 MG TABLET (FP) PO SCH (22:15)
[2016-12-02] MEDS: SODIUM CHLORIDE 1,000 ML IV SCH ×2 (02:47→17:07)
[2016-12-02 09:17] LABS: BASOPHIL 0.7 % (0-2.0); EOSINOPHIL 1.4 % (0-4.5); MCH 32.1 pg (25.7-33.7); MCHC 33.7 g/dl (32.0-35.9); MEAN CELL VOLUME 95.2 fl (80-96); MEAN PLT VOLUME 8.4 fl (7.5-11.1); NEUTROPHILS 70.1 % (42.8-82.8); PLATELET COUNT 130 K/MM3 (134-434); RDW 13.2 % (11.9-15.9); WHITE BLOOD COUNT 4.1 K/mm3 (4.0-10.0)
--- NOTE | 2016-12-02 09:19 | PN ---
Progress Note, Physician History of Present Illness: Patient reports exertional dyspnea, but also with worsening anemia again and pending PRBC transfusion today. Denies chest pain. - Current Medication List Current Medications: Active Medications Atorvastatin Calcium (Lipitor -) 40 mg PO HS [facility] Last Admin: 12/01/16 22:15 Dose: 40 mg Pantoprazole Sodium 80 mg/ (Sodium Chloride) 100 mls @ 10 mls/hr IVPB Q10H JOSE E PRN Reason: 8 MG/HR Last Admin: 12/01/16 22:16 Dose: 10 mls/hr Sodium Chloride (Normal Saline -) 1,000 mls @ 75 mls/hr IV ASDIR [facility] Last Admin: 12/02/16 02:47 Dose: 75 mls/hr Multivitamins/Minerals/Vitamin C (Tab-A-Vit -) 1 tab PO DAILY [facility] Last Admin: 12/01/16 09:59 Dose: 1 tab - Objective Vital Signs: Vital Signs Temperature 97.9 F 12/02/16 06:00 Pulse Rate 74 12/02/16 06:00 Respiratory Rate 17 12/02/16 06:00 Blood Pressure 123/58 12/02/16 06:00 O2 Sat by Pulse Oximetry (%) 95 12/01/16 21:00 Eyes: Yes: Conjunctiva Clear, EOM Intact HENT: Yes: Atraumatic, Normocephalic Cardiovascular: Yes: Regular Rate and Rhythm. No: JVD Respiratory: Yes: CTA Bilaterally Gastrointestinal: Yes: Normal Bowel Sounds, Soft. No: Distention, Tenderness Edema: No Neurological: Yes: Alert, Oriented, Cran Nerves II-XII Intact Labs: CBC, BMP 12/01/16 05:36 INR, PTT INR 1.14 (0.82-1.09) 11/27/16 22:20 Assessment/Plan 85 yo male with HTN, hyperlipidemia, complete AV block with pacemaker ([employer]), paroxysmal afib, CAD, PCI of mLAD & OM1 in 11/2005 and PCI in 03/2006 , mild aortic stenosis, h/o colon cancer (resection and chemo), and prior GI bleed in 09/2013 (Plavix discontinued at that time) & again in 03/2014. Admitted with melena and anemia. EGD 11/28 demonstrated AVMs. First attempt at colonoscopy was incomplete due to poor bowel prep. Repeat colonoscopy on 11/30/16 demonstrated blood but no diverticulosis. BP meds on hold because of low BP. Remains normotensive off meds. Final report of CT abd/pelvis pending. Pending PRBC today. Exertional dyspnea today due to anemia. No evidence on exam to suggest CHF. RECS: transfuse prn. Further recs as per primary team and GI. Continue to hold aspirin. Will follow. Call with questions.
[2016-12-02] MEDS: MULTIVITAMINS (DAILY MVI) TABLET (FP) PO SCH (10:31)
[2016-12-02] MEDS: PANTOPRAZOLE SODIUM 80 MG in SODIUM CHLORIDE 100 ML IVPB SCH ×3 (10:31→17:09)
--- NOTE | 2016-12-02 11:57 | PN ---
Progress Note (short form) - Note Progress Note: No CP. Reports RUSSELL. Pending transfusion. Intake & Output 11/29/16 11/30/16 12/01/16 12/02/16 23:59 23:59 23:59 23:59 Intake Total 2160 1550 900 752 Output Total 500 400 Balance 1660 1150 900 752 Weight 146 lb 8 oz 150 lb 3.2 oz 151 lb 6.4 oz Last Vital Signs Temp Pulse Resp BP Pulse Ox 97.9 F 74 17 123/58 95 12/02/16 06:00 12/02/16 06:00 12/02/16 06:00 12/02/16 06:00 12/01/16 21:00 Active Medications Atorvastatin Calcium (Lipitor -) 40 mg PO HS [facility] Last Admin: 12/01/16 22:15 Dose: 40 mg Pantoprazole Sodium 80 mg/ (Sodium Chloride) 100 mls @ 10 mls/hr IVPB Q10H JOSE E PRN Reason: 8 MG/HR Last Admin: 12/02/16 10:31 Dose: 10 mls/hr Sodium Chloride (Normal Saline -) 1,000 mls @ 75 mls/hr IV ASDIR JOSE E Last Admin: 12/02/16 02:47 Dose: 75 mls/hr Multivitamins/Minerals/Vitamin C (Tab-A-Vit -) 1 tab PO DAILY JOSE E Last Admin: 12/02/16 10:31 Dose: 1 tab Laboratory Results - last 24 hr 12/01/16 12/02/16 12/02/16 21:00 08:20 08:20 WBC 6.6 4.1 D RBC 2.41 L 2.28 L Hgb 7.8 L 7.3 L Hct 22.9 L 21.7 L MCV 94.9 95.2 MCHC 33.9 33.7 RDW 13.0 13.2 Plt Count 147 130 L MPV 8.3 8.4 Neutrophils % 70.1 Lymphocytes % 20.9 Monocytes % 6.9 Eosinophils % 1.4 Basophils % 0.7 Blood Type A POSITIVE Antibody Screen Negative Crossmatch See Detail Spec Expiration Date Gen: NAD at rest Heart: RRR, +systolic murmur Lung: decreased breath sounds at the bases Abd: soft, nontender Ext: no edema Laboratory Results - last 24 hr 12/01/16 12/02/16 12/02/16 21:00 08:20 08:20 WBC 6.6 4.1 D RBC 2.41 L 2.28 L Hgb 7.8 L 7.3 L Hct 22.9 L 21.7 L MCV 94.9 95.2 MCHC 33.9 33.7 RDW 13.0 13.2 Plt Count 147 130 L MPV 8.3 8.4 Neutrophils % 70.1 Lymphocytes % 20.9 Monocytes % 6.9 Eosinophils % 1.4 Basophils % 0.7 Blood Type A POSITIVE Antibody Screen Negative Crossmatch See Detail Spec Expiration Date ASSESSMENT AND PLAN: GI Bleed Symptomatic Anemia Paroxysmal Atrial Fibrillation s/p PPM CAD s/p stents h/o Colon Ca - monitor H/H - transfuse as needed - protonix - DVT prophylaxis Dr Beckwith
--- NOTE | 2016-12-02 13:56 | PN ---
Physical Exam: SUBJECTIVE: Patient seen and examined Patient is actively bleeding. will Transfer the patient to ICU. Tarry color soft stool per rectum running. OBJECTIVE: Vital Signs Temperature 97.9 F 12/02/16 06:00 Pulse Rate 74 12/02/16 06:00 Respiratory Rate 17 12/02/16 06:00 Blood Pressure 123/58 12/02/16 06:00 O2 Sat by Pulse Oximetry (%) 95 12/01/16 21:00 GENERAL: The patient is awake, alert, and fully oriented, in no acute distress. HEAD: Normal with no signs of trauma. EYES: PERRL, extraocular movements intact, sclera anicteric, conjunctiva clear. ENT: Ears normal, oropharynx clear without exudates, moist mucous membranes. NECK: Trachea midline, full range of motion, supple. LUNGS: Breath sounds equal, clear to auscultation bilaterally, no wheezes, no crackles, no accessory muscle use. HEART: Regular rate and rhythm, S1, S2 without murmur, rub or gallop. ABDOMEN: Soft, nontender, nondistended, normoactive bowel sounds, no guarding, no hepatosplenomegaly, no masses. EXTREMITIES: 2+ pulses, warm, well-perfused, no edema. NEUROLOGICAL: Cranial nerves II through XII grossly intact. Normal speech, gait not observed. PSYCH: Normal mood, normal affect. SKIN: Warm, dry, normal turgor, no rashes or lesions noted Laboratory Results - last 24 hr 12/01/16 12/02/16 12/02/16 21:00 08:20 08:20 WBC 6.6 4.1 D RBC 2.41 L 2.28 L Hgb 7.8 L 7.3 L Hct 22.9 L 21.7 L MCV 94.9 95.2 MCHC 33.9 33.7 RDW 13.0 13.2 Plt Count 147 130 L MPV 8.3 8.4 Neutrophils % 70.1 Lymphocytes % 20.9 Monocytes % 6.9 Eosinophils % 1.4 Basophils % 0.7 Blood Type A POSITIVE Antibody Screen Negative Crossmatch See Detail Spec Expiration Date Active Medications Generic Name Dose Route Start Last Admin Trade Name Freq PRN Reason Stop Dose Admin Atorvastatin Calcium 40 mg 11/28/16 22:00 12/01/16 22:15 Lipitor - PO 40 mg HS JOSE E Administration Pantoprazole Sodium 80 mg/ 100 mls @ 10 mls/hr 11/28/16 22:00 12/02/16 10:31 Sodium Chloride IVPB 10 mls/hr Q10H JOSE E Administration 8 MG/HR Sodium Chloride 1,000 mls @ 75 mls/hr 11/28/16 14:33 12/02/16 02:47 Normal Saline - IV 75 mls/hr ASDIR JOSE E Administration Multivitamins/Minerals/Vitamin C 1 tab 11/29/16 10:00 12/02/16 10:31 Tab-A-Vit - PO 1 tab DAILY JOSE E Administration ASSESSMENT AND PLAN: 85 y/o with h/o 3rd degree AV block , s/p PAce maker , HTN, Upper GI bleed , P AFib not o n anticoagulation who presented with melena x 1 week , was found to have anemia , + FOBT and orthostatic hypotension # Acute GI bleed , tarry stool , will transfer the patient back to ICU. ordered 2 units if transfusion received one unit so far , second one is going in now, repeat h/h in 4 hrs post transfusion. Discussed with agrees with the tx, possible EGD/Colonoscopy in am. 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 Cont IVF , hold ASA. # H/o 3rd degree AV block . s/p Pace maker DVT Px: SCDs Visit type - Emergency Visit Emergency Visit: Yes ED Registration Date: 11/27/16 Care time: The patient presented to the Emergency Department on the above date and was hospitalized for further evaluation of their emergent condition. - New Patient This patient is new to me today: No - Critical Care Critical Care patient: Yes Total Critical Care Time (in minutes): 35 Critical Care Statement: The care of this patient involved high complexity decision making to prevent further life threatening deterioration of the patient 's condition and/or to evalute & treat vital organ system(s) failure or risk of failure. - Discharge Referral Referred to [facility] No
--- NOTE | 2016-12-02 15:52 | PN ---
GI Progress Note Subjective: Events noted. Ongoing GI bleed. Source still unclear CTA does not show source although official reading is still not in the medical record. Last Hgb 7.3. Receiving 2nd unit of PRBC - Objective Vital Signs: Vital Signs Temperature 98.9 F 12/02/16 10:00 Pulse Rate 78 12/02/16 10:00 Respiratory Rate 12/02/16 10:00 Blood Pressure 125/68 12/02/16 10:00 O2 Sat by Pulse Oximetry (%) 97 12/02/16 10:00 Constitutional: Well Nourished HENT: Yes: Normocephalic Neck: Yes: Supple Cardiovascular: Yes: Regular Rate and Rhythm Respiratory: Yes: CTA Bilaterally ...Auscultate: Yes: Normoactive Bowel Sounds ...Palpate: Yes: Soft. No: Tenderness Labs: CBC, BMP 12/02/16 08:20 12/01/16 05:36 INR, PTT INR 1.14 (0.82-1.09) 11/27/16 22:20 Abnormal Lab Results 12/01/16 12/02/16 12/02/16 21:00 08:20 08:20 RBC 2.41 L 2.28 L Hgb 7.8 L 7.3 L Hct 22.9 L 21.7 L Plt Count 130 L Crossmatch See Detail Assessment/Plan Events noted Ongoing bleed Transfuse to Hgb 9 CTA of no value at this time Will re-scope upper and lower tomorrow AM If still unable to find the source, will transfer to [facility]
--- NOTE | 2016-12-02 15:57 | CONSULT ---
Consult Consult Specialty:: PULM / CCM Referred by:: Dr. Hilaria Augustin Reason for Consultation:: GIB - History of Present Illness Chief Complaint: Melena History of Present Illness: Mr. Rivers is an 86 y/o man w/ a PMHx/o GIB, HTN, HLD, complete AVB w/ pcmkr ([employer]), paroxysmal afib, CAD, PCI of mLAD & OM1 in 11/2005 and PCI in 03/2006, (On ASA) mild , and Colon CA (s/p resection+chemo 2009), admitted on 11/27 w/ dark tarry bowel movements X 1wk [employer]. EGD on 11/[address] Chi showed gastric AVMs but no further bleeding. Colonoscopy on 11/30 c/f possible colonic lesion but unable to pinpoint source. Today the pt was on Med Surg awaiting d/c --> Home when he started experiencing melena again. Hgb dropped from 9 --> 7. Thus, the pt was transferred to the ICU for GIB. - History Source History Provided By: Patient, Medical Record Limitations to Obtaining History: No Limitations - Past Medical History Cardio/Vascular: Yes: AFIB (paroxysmal -. decision not to AC partly from pt's choice and partly becuase of GIBs), CAD (PCI/stent 2005), HTN, Hyperlipdemia, Other (CHB -. PPM in 2006 -. battery cahnge in 2012) Gastrointestinal: Yes: GERD, GI Bleed (in 2012 -. PRBC -> EGD showed gastritis nd 2013) - Past Surgical History Past Surgical History: Yes: Cataract Removal, Colectomy - Alcohol/Substance Use Hx Alcohol Use: Yes (social) - Smoking History Smoking history: Former smoker Have you smoked in the past 12 months: No Aproximately how many cigarettes per day: 0 If you are a former smoker, when did you quit?: 1979 - Social History Usual Living Arrangement: With Spouse History of Recent Travel: No Home Medications - Allergies Allergies/Adverse Reactions: Allergies Allergy/AdvReac Type Severity Reaction Status Date / Time Penicillins Allergy Verified 11/27/16 10:16 - Home Medications Home Medications: Ambulatory Orders Metoprolol Succinate [Toprol XL -] 50 mg PO BID 10/09/13 Multivitamin [Multivitamins] 1 each PO DAILY 12/12/13 Ramipril 2.5 mg PO DAILY 10/09/13 Simvastatin [Zocor] 80 mg PO HS 10/09/13 Pantoprazole Sodium [Protonix -] 40 mg PO DAILY #30 tablet.ec 10/11/13 Aspirin [Aspirin EC] 81 mg PO DAILY 11/27/16 Family Disease History - Family Disease History Family History: Denies Review of Systems - Review of Systems Constitutional: reports: No Symptoms Eyes: reports: No Symptoms HENT: reports: No Symptoms Neck: reports: No Symptoms Cardiovascular: reports: No Symptoms Respiratory: reports: No Symptoms Gastrointestinal: reports: Melena Genitourinary: reports: No Symptoms Breasts: reports: No Symptoms Reported Musculoskeletal: reports: No Symptoms Integumentary: reports: No Symptoms Neurological: reports: No Symptoms Endocrine: reports: No Symptoms Hematology/Lymphatic: reports: No Symptoms Psychiatric: reports: No Symptoms Pain Intensity: 0 Physical Exam Vital Signs: Vital Signs Temperature 98.9 F 12/02/16 10:00 Pulse Rate 78 12/02/16 10:00 Respiratory Rate 12/02/16 10:00 Blood Pressure 125/68 12/02/16 10:00 O2 Sat by Pulse Oximetry (%) 97 12/02/16 10:00 Intake & Output 11/29/16 11/30/16 12/01/16 12/02/16 23:59 23:59 23:59 23:59 Intake Total 2160 1550 900 752 Output Total 500 400 Balance 1660 1150 900 752 Weight 66.451 kg 68.13 kg 68.674 kg Constitutional: Yes: Well Nourished, No Distress, Calm, Other Eyes: Yes: WNL, Conjunctiva Clear HENT: Yes: WNL, Atraumatic, Normocephalic Neck: Yes: WNL, Supple, Trachea Midline Cardiovascular: Yes: Other ( LOUD Syst Murmur) Respiratory: Yes: WNL, Regular, CTA Bilaterally Gastrointestinal: Yes: WNL, Normal Bowel Sounds, Soft ...Rectal Exam: Yes: Deferred Renal/: Yes: WNL Breast(s): Yes: WNL Musculoskeletal: Yes: WNL Extremities: Yes: WNL Edema: No Peripheral Pulses WNL: Yes Neurological: Yes: WNL, Alert, Oriented ...Motor Strength: WNL Psychiatric: Yes: WNL, Alert, Oriented Labs: CBC, BMP 12/02/16 08:20 12/01/16 05:36 Imaging - Results Cat Scan: Image Reviewed (CTAP w/ IV con 12/01: No obvious source of bleeding (My Read) --> Awaiting official read.) EKG: Image Reviewed (11/27: PCMKR RHYTHM @ 60 BPM, no ectopy, L axis, LVH, QTC = 496ms, no acute processes (My Read)) Problem List - Problems (1) GI (gastrointestinal hemorrhage) Code(s): K92.2 - GASTROINTESTINAL HEMORRHAGE, UNSPECIFIED Qualifiers: GI bleed type/associated pathology: melena Qualified Code(s): K92.1 - Melena Assessment/Plan ASSESS: This is an 85 y/o M w/ a PMHx/o GIB, HTN, HLD, A-Fib & complete AVB ( now w/ pcmkr), CAD w/ stents on ASA, and Colon CA admitted to ICU now for recurrent GIB. PLAN: -NPO -D/c ALL anti-HTN meds -Active T & S -Maintian Large bore IV access X2 -PPI gtt -Trend CBC -Transfuse up to a Hgb > 8.0 min -FFP -EGD in the AM -Consider IR -GI Consult -Strict I's & O's -Gentle IV re-hydration -Replet e-lyrtes prn -Supp Fio2 for an SpO2 > 92% -Nebs -IS -NO AC while actively bleeding -SCDs -If unable to achieve bleeding control Transfer pt --> [facility] Bernard Espinosa, ACNP-BC [address] [facility] PULM / CCM
[2016-12-02] MEDS ORDERED: SODIUM CHLORIDE 1,000 ML IV SCH (17:34)
[2016-12-02 18:31] VITALS: TEMP 98.3
--- NOTE | 2016-12-02 20:47 | CONSULT ---
Consult - text type - Consultation Consultation Note: Transfer Mr. Rivers is an 86 y/o man with h/o GIB, HTN, HLD, complete AVB w/ pacemaker , paroxysmal Afib, CAD, PCI, mild and h/o colon cancer s/p resection and chemo who was admitted with GIB. EGD showed AVMs but no other source and colonoscopy also unrevealing though question of lesion. He was admitted from the floor to the ICU at [facility] in the setting of hemodynamically stable hgb drop today from 9->7. He is now s/p 2 units PRBC and remains hemodynamically stable. Arrangements have been made to transfer pt to [facility]. I have spoken to Dr. Beckwith who was in touch with Jose who is an systems administrator in step down. Pt is accepted under Dr. Serrato whos team is awaiting pt for immediate eval and determination as to whether pt will go to monitored step down setting or to floor bed. They assured Dr. Beckwith that monitored step down beds are available. This was explained in detail to pts son who is at the bedside. Concepción Mata [facility]
[2016-12-02 20:54] VITALS: BP 140/71; PULSE 82
[2016-12-02] MEDS ORDERED: ATORVASTATIN CA 40 MG TABLET (FP) PO SCH (22:00)
[2016-12-03] MEDS ORDERED: PANTOPRAZOLE SODIUM 80 MG in SODIUM CHLORIDE 100 ML IVPB SCH (02:00)
[2016-12-03] MEDS ORDERED: MULTIVITAMINS (DAILY MVI) TABLET (FP) PO SCH (10:00)
--- NOTE | 2016-12-03 12:48 | PN ---
Progress Note (short form) - Note Progress Note: Addendum: Arrangements made by family member to transfer patient to [facility] for further management. Procedures for AM cancelled. Patient made aware of transfer-he had no knowledge of this. He requested to stay but is yielding to pressure from family to be transferred. As such, I had requested that he be transferred in an ACLS ambulance. A BLS unit arrived. BLS can not transfer with IV drips-these drips were terminated prior to transfer. The admitting physician, Dr Serrato, at [facility] stated he would take responsibility for this.
--- NOTE | 2016-12-13 16:04 | DS ---
Physical Exam: SUBJECTIVE: Patient seen and examined Late entry for Discharge summary for 12/02/2016 Patient was transferred to ICU for further care. OBJECTIVE: Vital Signs Temperature 98.3 F 12/02/16 18:00 Pulse Rate 82 12/02/16 20:00 Respiratory Rate 18 12/02/16 20:00 Blood Pressure 140/71 12/02/16 20:00 O2 Sat by Pulse Oximetry (%) 98 12/02/16 17:05 LABS CBCD WBC 4.1 K/mm3 (4.0-10.0) D 12/02/16 08:20 RBC 2.28 M/mm3 (4.00-5.60) L 12/02/16 08:20 Hgb 7.3 GM/dL (11.7-16.9) L 12/02/16 08:20 Hct 21.7 % (35.4-49) L 12/02/16 08:20 MCV 95.2 fl (80-96) 12/02/16 08:20 MCHC 33.7 g/dl (32.0-35.9) 12/02/16 08:20 RDW 13.2 % (11.9-15.9) 12/02/16 08:20 Plt Count 130 K/MM3 (134-434) L 12/02/16 08:20 MPV 8.4 fl (7.5-11.1) 12/02/16 08:20 CMP Sodium 143 mmol/L (136-145) 12/01/16 05:36 Potassium 4.1 mmol/L (3.5-5.1) 12/01/16 05:36 Chloride 109 mmol/L (98-107) H 12/01/16 05:36 Carbon Dioxide 23 mmol/L (21-32) 12/01/16 05:36 Anion Gap 11 (8-16) 12/01/16 05:36 BUN 17 mg/dL (7-18) D 12/01/16 05:36 Creatinine 1.1 mg/dL (0.7-1.3) 12/01/16 05:36 Creat Clearance w eGFR > 60 (>60) 11/30/16 05:35 Random Glucose 103 mg/dL (74-106) 12/01/16 05:36 Calcium 8.4 mg/dL (8.5-10.1) L 12/01/16 05:36 Total Bilirubin 0.7 mg/dL (0.2-1.0) 11/30/16 05:35 AST 41 U/L (15-37) H D 11/30/16 05:35 ALT 26 U/L (12-78) D 11/30/16 05:35 Alkaline Phosphatase 43 U/L (45-117) L 11/30/16 05:35 Total Protein 5.8 g/dl (6.4-8.2) L 11/30/16 05:35 Albumin 3.4 g/dl (3.4-5.0) 11/30/16 05:35 CARDIAC ENZYMES Creatine Kinase 212 IU/L (39-308) 11/28/16 05:10 Troponin I 0.05 ng/ml (0.00-0.05) 11/28/16 05:10 HOSPITAL COURSE: Date of Admission:11/27/16 Date of Discharge: 12/02/16 Arrangements were made by a family member to transfer patient to [facility] for further management. Patient was going to repeat colonoscopy in am for further care but was cancelled since patient was getting transferred to [facility]. As per patient was not aware that he is being transferred ,he had no knowledge of this. Therefore patient was requested by to be transferred out by an [facility] ambulance since patient is having episodes of rectal bleed As per Notes , A BLS unit was arrived since S can not transfer with IV drips-these drips were terminated prior to transfer. As per ' s notes ,the admitting physician, Dr Serrato, at [facility] stated he would take responsibility for this transfer. # Acute GI bleed , tarry stool ,s/p units of PRBC transfusion Colonoscopy was cancelled since patient is being transferred to [facility]. # Normocytic anemia , s/p EGD , s/p Colonscopy x2 , ordered CTA abd and pelvis official dictated report pending but substation technician radiologist called back with the result, no bleed noted but bladder mass, and common iliac dissection official report pending .wiithout any bleed. Cont IVF , hold ASA. # H/o 3rd degree AV block . s/p Pace maker Minutes to complete discharge: 30 Discharge Summary Reason For Visit: GASTROINTESTINAL HEMORRHAGE Condition: Guarded - Instructions Disposition: TRANSFER ACUTE CARE/OTHER HOSP - Home Medications Comprehensive Discharge Medication List: Ambulatory Orders Metoprolol Succinate [Toprol XL -] 50 mg PO BID 10/09/13 Multivitamin [Multivitamins] 1 each PO DAILY 10/09/13 Ramipril 2.5 mg PO DAILY 10/09/13 Simvastatin [Zocor] 80 mg PO HS 10/09/13 Pantoprazole Sodium [Protonix -] 40 mg PO DAILY #30 tablet.ec 10/11/13 Aspirin [Aspirin EC] 81 mg PO DAILY 11/27/16 This patient is new to me today: No Emergency Visit: No Critical Care patient: No - Discharge Referral Referred to [facility] No
== END 2016-12-02 20:59 | disposition short-term general hospital (02) | DRG 378 ==
LOC: FER 10:08 → JICU 14:55 → J4W 11-28 15:53 → JICU 12-02 15:40
PROVIDERS: ADMIT Internal Medicine; ATTEND Internal Medicine
PROC: 0DB68ZX Excision of Stomach, Via Natural or Artificial Opening Endoscopic, Diagnostic (ICD-10-PCS; 2016-11-28)
PROC: 0D568ZZ Destruction of Stomach, Via Natural or Artificial Opening Endoscopic (ICD-10-PCS; principal; 2016-11-28 12:00)
PROC: 0DJD8ZZ Inspection of Lower Intestinal Tract, Via Natural or Artificial Opening Endoscopic (ICD-10-PCS; 2016-11-29)
PROC: 0DJD8ZZ Inspection of Lower Intestinal Tract, Via Natural or Artificial Opening Endoscopic (ICD-10-PCS; 2016-11-30)
PROC: 30233N1 Transfusion of Nonautologous Red Blood Cells into Peripheral Vein, Percutaneous Approach (ICD-10-PCS; 2016-12-02)
DX: K92.2 Gastrointestinal hemorrhage, unspecified (principal); N17.9 Acute kidney failure, unspecified; D62 Acute posthemorrhagic anemia; I10 Essential (primary) hypertension; E78.5 Hyperlipidemia, unspecified; I25.10 Atherosclerotic heart disease of native coronary artery without angina pectoris; Z95.0 Presence of cardiac pacemaker; Z85.038 Personal history of other malignant neoplasm of large intestine; I95.1 Orthostatic hypotension; Z87.891 Personal history of nicotine dependence; I48.0 Paroxysmal atrial fibrillation; K31.819 Angiodysplasia of stomach and duodenum without bleeding; E86.1 Hypovolemia
CPT/HCPCS: 36415; 70450-TC; 71010-TC; 74174-TC; 80048; 80053; 81003; 81015; 82272; 82550; 82553; 83605; 83735; 84100; 84484; 85025; 85027; 85610; 85730; 86850; 86900; 86901; 86922; 87254; 87804; 88305-TC; 88342-TC; 93005; 94010; 99285-25; P9038; P9058